=== PATIENT | male | born 1950 | race Caucasian/White ===

== ENCOUNTER → 2019-04-28 10:32 | Outpatient (BNVA) | payer OTHER, SELFPAY | PROVIDERS: PCP Internal Medicine; Visit Provider Otolaryngology | DX: J32.9 Chronic sinusitis, unspecified (principal); J34.2 Deviated nasal septum; J34.3 Hypertrophy of nasal turbinates; F17.210 Nicotine dependence, cigarettes, uncomplicated | CPT/HCPCS: 99203; 99214 ==

== ENCOUNTER 2019-05-03 13:11 | Outpatient (CLI) | payer OTHER, SELFPAY ==
--- NOTE | 2019-05-03 13:30 | CT_ITS ---
WS: [id number] CT PARANASAL SINUSES HISTORY: sinus problems TECHNIQUE: Contiguous 2.5 mm axial images obtained through the sinuses. Images are reconstructed in s agittal and coronal planes. All CT scans at [facility] use at least one of these dose opt imization techniques: automated exposure control; mA and/or kV adjustment per patient size (includes targeted exams where dose is matched to clinical indication); or iterative reconstruction. DLP: 701.74 mGy.cm COMPARISON: None available. Frontal sinuses: Very mild mucoperiosteal thickening with no air-fluid level. Sphenoid sinus: Mild mucoperiosteal thickening anteriorly towards the ethmoid air cells. No air-fluid levels. Ethmoid sinuses: Moderate diffuse mucoperiosteal thickening throughout the ethmoid air cells, LEFT gr eater than RIGHT. Maxillary sinus: Mild mucoperiosteal thickening. No air-fluid levels. Mucous retention cyst in the fl oor the LEFT maxillary sinus. Ostiomeatal unit: Increased soft tissue at the ostiomeatal units. Ostiomeatal units are partially obs tructed. There is slight deviation of the uncinate process on the LEFT towards the orbit. No significant deviation of the nasal septum. CT/CT sinus wo con* [id number] IMPRESSION: 1. Mild chronic pansinusitis. Most significant disease involving the ethmoid a ir cell, LEFT greater than RIGHT. 2. Bilateral ostiomeatal unit partial obstruction, LEFT greater than RIGHT.
== END 2019-05-03 13:12 | disposition home or self-care (01) ==
LOC: CT 13:12
PROVIDERS: PCP Internal Medicine; Visit Provider Otolaryngology
DX: J32.4 Chronic pansinusitis (principal); J34.89 Other specified disorders of nose and nasal sinuses
CPT/HCPCS: 70486

== ENCOUNTER → 2019-05-17 10:43 | Outpatient (BNVA) | payer OTHER, SELFPAY | PROVIDERS: PCP Internal Medicine; Visit Provider Otolaryngology | DX: J32.9 Chronic sinusitis, unspecified (principal); J34.2 Deviated nasal septum; J34.3 Hypertrophy of nasal turbinates; F17.210 Nicotine dependence, cigarettes, uncomplicated | CPT/HCPCS: 96372; 99214; J3301 ==

== ENCOUNTER 2020-07-25 04:51 | Inpatient (IN) | payer OTHER, MEDICARE, SELFPAY ==
[2020-07-25] VITALS (16 sets, daily range): BP systolic 102–154; BP diastolic 65–74; PULSE 68–117; RESP 16–23; TEMP 36.3–37.2; O2SAT 93–97; BMI 30.3
--- NOTE | 2020-07-25 05:12 | XRR_ITS ---
PROCEDURE INFORMATION: Exam: XR Chest Exam date and time: 07/25/2020 5:25 AM Age: 69 years old Clinical indication: Dyspnea and shortness of breath; Patient HX: SOB and dyspnea TECHNIQUE: Imaging protocol: XR of the chest. Views: 1 view. COMPARISON: No relevant prior studies available. FINDINGS: Lungs: There is a focal opacity at the left lung base. Pleural spaces: Unremarkable. No pleural effusion. No pneumothorax. Heart/Mediastinum: Unremarkable. No cardiomegaly. Bones/joints: Unremarkable. XR/XR chest 1V portable [id number] IMPRESSION: Focal opacity at the left lung base which could be secondary to atelectasis or pneumonia.
--- NOTE | 2020-07-25 05:12 | ECG_ITS ---
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 Measurements Intervals [place] Rate: 103 P: 39 [place]: 188 QRS: 59 QRSD: 98 T: 20 QT: 332 QTc: 435 Interpretive Statements SINUS TACHYCARDIA POSSIBLE INFERIOR MYOCARDIAL INFARCTION , PROBABLY OLD [30 ms Q WAVE IN II/aVF] ABNORMAL RHYTHM ECG No previous ECG available for comparison Electronically Signed On 07-25-2020 8:05:34 CDT by Missael Noble M.D. [id number]
--- NOTE | 2020-07-25 05:13 | W.ED.SOB ---
Documented by User: Carmine Alcantar MD 07/25/20 05:49 HPI - SOB/Dyspnea General: Chief Complaint: Shortness of Breath/Dyspnea Stated Complaint: difficulty breathing Time Seen by Provider: 07/25/20 04:52 Source: patient Mode of arrival: ambulatory Limitations: no limitations History of Present Illness: HPI Narrative: 69-year-old male has a long history of COPD states he had increased shortness of breath of last 2 days. States that he is driving home the other day and was feeling tired and states he drank a lot of coffee roll the windows down and smoked a lot of cigarettes to try to stay awake and states that he has had increasing dyspnea since then. He states he typically smokes 2 to 4 cigarettes a day but smoked quite a few that day. He states he just feels that he can get breaths out and has had increased wheezing. Denies any fever. Denies any chest pain. Denies any vomiting or diarrhea. Associated symptoms: Deny abdominal pain, chest pain, fever(s), nausea or vomiting Review of Systems Const: Denies: fever(s), chills, body aches or change in appetite Eyes: Denies: blurry vision or eye discomfort ENMT: Denies: throat pain or dental pain Card: Denies: chest pain Resp: Reports: dyspnea, non-productive cough and wheezing GI: Denies: abdominal pain, nausea, vomiting or diarrhea : Denies: dysuria Musc: Denies: neck pain or back pain Skin/Breast: Denies: rash Neuro: Denies: headache(s) Psych: Denies: depression Jamison/Lymph: Denies: easy bruising All/Imm: Denies: urticaria PFS ED PFSH: Medical History (Updated 07/25/20 @ 06:35 by Damon Rich MD) Deviated septum Nasal turbinate hypertrophy Family History Other Cancer Social History Smoking and tobacco status: current every day smoker cigarettes Packs smoked per day: 1 Years cigarettes smoked: 53 Quit status (tobacco): considering quitting Physical Exam Const: COMMON NORMALS: no acute distress, patient oriented x3 and healthy appearing HENMT: COMMON NORMALS: normocephalic and atraumatic HEAD & SCALP: normocephalic and atraumatic Eye: COMMON NORMALS: Equal, round and reactive pupils present and EOMs intact bilaterally PUPIL: Yes Equal, round and reactive pupils present Neck/C-Spine: COMMON NORMALS: full ROM and supple Chest: COMMONS NORMALS: normal inspection of the chest and normal palpation of entire chest wall Resp: COMMON NORMALS: normal respiratory effort, No retractions and No use of accessory muscles AUSCULTATION: wheezes Cardio: COMMON NORMALS: regular rhythm and No murmurs present (Cardio) RATE: tachycardic RHYTHM: regular rhythm GI: COMMON NORMALS: Normal to inspection, nondistended, normoactive bowel sounds present, Soft to palpation, non-tender and no masses PALPATION: Yes Soft to palpation Extremity: COMMON NORMALS: normal to inspection and full ROM Neuro: COMMON NORMALS: patient oriented x3, moves all extremities and no focal motor deficits Psych: COMMON NORMALS: mental status grossly normal, Normal thought process present and cooperative THOUGHT PROCESS: Normal thought process present Skin: COMMON NORMALS: no rashes or lesions noted and no wounds GENERAL SKIN EXAM: no rashes or lesions noted Course Vital Signs: Vital signs: Vital Signs Temperature 97.7 F 07/25/20 04:54 Pulse Rate 100 07/25/20 05:47 Respiratory Rate 17 07/25/20 05:47 Blood Pressure 102/65 07/25/20 04:54 Pulse Oximetry 95 07/25/20 05:57 MDM - SOB/Dyspnea Lab Data: Labs: Lab Results 07/25/20 07/25/20 07/25/20 Range/Units 05:20 05:20 05:20 WBC 21.2 H (4.0-10.0) 10^3/ uL RBC 4.31 (4.1-5.3) 10^6/u L Hgb 14.3 (11.7-16.6) g/dL Hct 42.0 (42.0-52.0) % MCV 97.4 H (80-94) fL MCH 33.2 (28.0-34.0) pg MCHC 34.0 (30.0-36.0) g/dL RDW 11.5 L (12.1-15.1) % Plt Count 227 (130-400) 10^3/c mm MPV 9.4 (7.4-10.4) fL Neut % (Auto) 80.4 % Lymph % (Auto) 9.7 % Mcdonald % (Auto) 8.5 % Eos % (Auto) 0.4 % Baso % (Auto) 0.5 % Neut # (Auto) 17.02 H (1.8-7.7) 10^3/u L Lymph # (Auto) 2.1 (0.8-4.8) 10^3/u L Mcdonald # (Auto) 1.8 H (0.2-0.9) 10^3/u L Eos # (Auto) 0.1 (0.0-0.8) 10^3/u L Baso # (Auto) 0.1 (0.0-0.1) 10^3/u L Nucleated RBC % (a uto) 0 % Nucleated RBCs # 0.0 /100WBC D-Dimer (0-0.59) ug/mIFE U Sodium 130 L (136-145) mmol/L Potassium 4.6 (3.5-5.1) mmol/L Chloride 97 L (98-107) mmol/L Carbon Dioxide 21 L (22-29) mmol/L Anion Gap 16.6 (5-19) BUN 22 (8-23) mg/dL Creatinine 1.3 H (0.7-1.2) mg/dL GFR Calculation 54.7 L (90-130) mL/min Glucose 139 H (65-115) mg/dL Calculated Osmolal ity 276 L (285-295) mOsm/k g Calcium 8.6 (8.5-10.5) mg/dL Total Bilirubin 1.0 (0.15-1.2) mg/dL AST 16 (0-40) U/L ALT 18 (0-41) U/L Alkaline Phosphata se 84 (40-130) IU/L Troponin T Baselin e 21 H (0-15) ng/L NT-Pro-B Natriuret Pep 119 (0-125) pg/mL Total Protein 7.1 (6.6-8.7) g/dL Albumin 4.2 (3.5-5.2) g/dL Globulin 2.9 (1.3-4.6) g/dL 07/25/20 Range/Units 05:55 WBC (4.0-10.0) 10^3/ uL RBC (4.1-5.3) 10^6/u L Hgb (11.7-16.6) g/dL Hct (42.0-52.0) % MCV (80-94) fL MCH (28.0-34.0) pg MCHC (30.0-36.0) g/dL RDW (12.1-15.1) % Plt Count (130-400) 10^3/c mm MPV (7.4-10.4) fL Neut % (Auto) % Lymph % (Auto) % Mcdonald % (Auto) % Eos % (Auto) % Baso % (Auto) % Neut # (Auto) (1.8-7.7) 10^3/u L Lymph # (Auto) (0.8-4.8) 10^3/u L Mcdonald # (Auto) (0.2-0.9) 10^3/u L Eos # (Auto) (0.0-0.8) 10^3/u L Baso # (Auto) (0.0-0.1) 10^3/u L Nucleated RBC % (a uto) % Nucleated RBCs # /100WBC D-Dimer 0.71 H (0-0.59) ug/mIFE U Sodium (136-145) mmol/L Potassium (3.5-5.1) mmol/L Chloride (98-107) mmol/L Carbon Dioxide (22-29) mmol/L Anion Gap (5-19) BUN (8-23) mg/dL Creatinine (0.7-1.2) mg/dL GFR Calculation (90-130) mL/min Glucose (65-115) mg/dL Calculated Osmolal ity (285-295) mOsm/k g Calcium (8.5-10.5) mg/dL Total Bilirubin (0.15-1.2) mg/dL AST (0-40) U/L ALT (0-41) U/L Alkaline Phosphata se (40-130) IU/L Troponin T Baselin e (0-15) ng/L NT-Pro-B Natriuret Pep (0-125) pg/mL Total Protein (6.6-8.7) g/dL Albumin (3.5-5.2) g/dL Globulin (1.3-4.6) g/dL EKG Data^: EKG 1: Attestation: I personally reviewed and interpreted this EKG as follows: EKG Interpretation Date: 07/25/20 EKG interpretation time: 05:45 Interpretation: sinus tach hr [address] or t wave abnormalities qrs 98 qtc 392 Discharge Plan Discharge Patient Disposition: Placed in Observation Clinical Impression: Community acquired pneumonia, Acute exacerbation of chronic obstructive airways disease, Acute respiratory failure with hypoxia and hypercapnia Condition: Stable Prescriptions: No Action spironolactone 25 mg tablet 25 mg PO DAILY RF: 0 lisinopril 40 mg tablet 40 mg PO DAILY RF: 0 fluticasone propionate [Allergy Relief (fluticasone)] 50 mcg/actuation spray,suspension 1 spray INTRANASAL DAILY RF: 0 aspirin [Adult Aspirin Regimen] 81 mg tablet,delayed release (DR/EC) 81 mg PO DAILY RF: 0 Complete Multivitamin Tablet 1 tab PO DAILY RF: 0 Referrals: Mike Manuel [Primary Care Provider] - Discharge Diet: Usual diet Discharge Activity: Increase activity as tolerated Coding Level of Care Code ED Family Reunification Specialist for Chg Fwd Exam Comprehensive Documented by User: Damon Rich MD 07/25/20 06:35 HPI - SOB/Dyspnea General: Chief Complaint: Shortness of Breath/Dyspnea Stated Complaint: difficulty breathing Time Seen by Provider: 07/25/20 04:52 PFS ED PFSH: Medical History (Updated 07/25/20 @ 06:35 by Damon Rich MD) Deviated septum Nasal turbinate hypertrophy Family History Other Cancer Social History Smoking and tobacco status: current every day smoker cigarettes Packs smoked per day: 1 Years cigarettes smoked: 53 Quit status (tobacco): considering quitting Course Vital Signs: Vital signs: Vital Signs Temperature 97.7 F 07/25/20 04:54 Pulse Rate 100 07/25/20 05:47 Respiratory Rate 17 07/25/20 05:47 Blood Pressure 102/65 07/25/20 04:54 Pulse Oximetry 95 07/25/20 05:57 MDM - SOB/Dyspnea MDM Narrative: Medical decision making narrative: 69-year-old male presents with chills, malaise, coughing. He has elevated white blood cell count, tachycardia, hypoxia down to 86% on room air at rest even after breathing treatment, leukocytosis, and infiltrate in the left lower lobe on chest x-ray. Patient has low sodium and chloride, low bicarb, and elevated creatinine. A D-dimer was ordered on his initial presentation overnight and has come back positive. It is only mildly positive when age-adjusted. Favor pneumonia over pulmonary embolism. I have started 20 cc/kg of lactated Ringer's, Rocephin, doxycycline, blood cultures, lactic acid for SIRS criteria and suspected pneumonia. A Covid screen will be performed as a precaution although this was low suspicion clinically. Patient will require admission to the hospital. Dr. HANCOCK was paged for admission. Lab Data: Attestation: I reviewed the patient's lab results. Labs: Lab Results 07/25/20 07/25/20 07/25/20 Range/Units 05:20 05:20 05:20 WBC 21.2 H (4.0-10.0) 10^3/ uL RBC 4.31 (4.1-5.3) 10^6/u L Hgb 14.3 (11.7-16.6) g/dL Hct 42.0 (42.0-52.0) % MCV 97.4 H (80-94) fL MCH 33.2 (28.0-34.0) pg MCHC 34.0 (30.0-36.0) g/dL RDW 11.5 L (12.1-15.1) % Plt Count 227 (130-400) 10^3/c mm MPV 9.4 (7.4-10.4) fL Neut % (Auto) 80.4 % Lymph % (Auto) 9.7 % Mcdonald % (Auto) 8.5 % Eos % (Auto) 0.4 % Baso % (Auto) 0.5 % Neut # (Auto) 17.02 H (1.8-7.7) 10^3/u L Lymph # (Auto) 2.1 (0.8-4.8) 10^3/u L Mcdonald # (Auto) 1.8 H (0.2-0.9) 10^3/u L Eos # (Auto) 0.1 (0.0-0.8) 10^3/u L Baso # (Auto) 0.1 (0.0-0.1) 10^3/u L Nucleated RBC % (a uto) 0 % Nucleated RBCs # 0.0 /100WBC D-Dimer (0-0.59) ug/mIFE U Sodium 130 L (136-145) mmol/L Potassium 4.6 (3.5-5.1) mmol/L Chloride 97 L (98-107) mmol/L Carbon Dioxide 21 L (22-29) mmol/L Anion Gap 16.6 (5-19) BUN 22 (8-23) mg/dL Creatinine 1.3 H (0.7-1.2) mg/dL GFR Calculation 54.7 L (90-130) mL/min Glucose 139 H (65-115) mg/dL Calculated Osmolal ity 276 L (285-295) mOsm/k g Calcium 8.6 (8.5-10.5) mg/dL Total Bilirubin 1.0 (0.15-1.2) mg/dL AST 16 (0-40) U/L ALT 18 (0-41) U/L Alkaline Phosphata se 84 (40-130) IU/L Troponin T Baselin e 21 H (0-15) ng/L NT-Pro-B Natriuret Pep 119 (0-125) pg/mL Total Protein 7.1 (6.6-8.7) g/dL Albumin 4.2 (3.5-5.2) g/dL Globulin 2.9 (1.3-4.6) g/dL 07/25/20 Range/Units 05:55 WBC (4.0-10.0) 10^3/ uL RBC (4.1-5.3) 10^6/u L Hgb (11.7-16.6) g/dL Hct (42.0-52.0) % MCV (80-94) fL MCH (28.0-34.0) pg MCHC (30.0-36.0) g/dL RDW (12.1-15.1) % Plt Count (130-400) 10^3/c mm MPV (7.4-10.4) fL Neut % (Auto) % Lymph % (Auto) % Mcdonald % (Auto) % Eos % (Auto) % Baso % (Auto) % Neut # (Auto) (1.8-7.7) 10^3/u L Lymph # (Auto) (0.8-4.8) 10^3/u L Mcdonald # (Auto) (0.2-0.9) 10^3/u L Eos # (Auto) (0.0-0.8) 10^3/u L Baso # (Auto) (0.0-0.1) 10^3/u L Nucleated RBC % (a uto) % Nucleated RBCs # /100WBC D-Dimer 0.71 H (0-0.59) ug/mIFE U Sodium (136-145) mmol/L Potassium (3.5-5.1) mmol/L Chloride (98-107) mmol/L Carbon Dioxide (22-29) mmol/L Anion Gap (5-19) BUN (8-23) mg/dL Creatinine (0.7-1.2) mg/dL GFR Calculation (90-130) mL/min Glucose (65-115) mg/dL Calculated Osmolal ity (285-295) mOsm/k g Calcium (8.5-10.5) mg/dL Total Bilirubin (0.15-1.2) mg/dL AST (0-40) U/L ALT (0-41) U/L Alkaline Phosphata se (40-130) IU/L Troponin T Baselin e (0-15) ng/L NT-Pro-B Natriuret Pep (0-125) pg/mL Total Protein (6.6-8.7) g/dL Albumin (3.5-5.2) g/dL Globulin (1.3-4.6) g/dL Imaging Data^: CXR: Attestation: I personally reviewed and interpreted this imaging study as follows: My impression: LLL infiltrate Discharge Plan Discharge Patient Disposition: Placed in Observation Clinical Impression: Community acquired pneumonia, Acute exacerbation of chronic obstructive airways disease, Acute respiratory failure with hypoxia and hypercapnia Condition: Stable Prescriptions: No Action spironolactone 25 mg tablet 25 mg PO DAILY RF: 0 lisinopril 40 mg tablet 40 mg PO DAILY RF: 0 fluticasone propionate [Allergy Relief (fluticasone)] 50 mcg/actuation spray,suspension 1 spray INTRANASAL DAILY RF: 0 aspirin [Adult Aspirin Regimen] 81 mg tablet,delayed release (DR/EC) 81 mg PO DAILY RF: 0 Complete Multivitamin Tablet 1 tab PO DAILY RF: 0 Referrals: Mike Manuel [Primary Care Provider] - Discharge Diet: Usual diet Discharge Activity: Increase activity as tolerated Coding Level of Care Code ED Family Reunification Specialist for Chg Fwd Exam Comprehensive
[2020-07-25 05:35] LABS: Basophils # 0.1 10^3/uL (0.0-0.1); Basophils % 0.5 %; Eosinophils # 0.1 10^3/uL (0.0-0.8); Eosinophils % 0.4 %; Hemoglobin 14.3 g/dL (11.7-16.6); Lymphocytes # 2.1 10^3/uL (0.8-4.8); Lymphocytes % 9.7 %; Mean Corpuscular Hemoglobin 33.2 pg (28.0-34.0); Mean Corpuscular Volume 97.4 fL (80-94); Mean Platelet Volume 9.4 fL (7.4-10.4); Monocytes # 1.8 10^3/uL (0.2-0.9); Monocytes % 8.5 %; Neutrophils # 17.02 10^3/uL (1.8-7.7); Neutrophils % 80.4 %; Nucleated Red Blood Cells % 0 %; Platelet Count 227 10^3/cmm (130-400); Red Blood Count 4.31 10^6/uL (4.1-5.3); Red Cell Distribution Width 11.5 % (12.1-15.1); White Blood Count 21.2 10^3/uL (4.0-10.0)
[2020-07-25] MEDS: ipratropium-albuterol 3 mL Neb INHALATION ×4 (05:46→20:33)
[2020-07-25 05:59] LABS: Troponin(5th) Baseline 21 ng/L (0-15)
[2020-07-25 06:09] LABS: Alanine Aminotransferase 18 U/L (0-41); Albumin Level 4.2 g/dL (3.5-5.2); Alkaline Phosphatase 84 IU/L (40-130); Anion Gap 16.6 (5-19); Aspartate Amino Transferase 16 U/L (0-40); Blood Urea Nitrogen 22 mg/dL (8-23); Calcium 8.6 mg/dL (8.5-10.5); Carbon Dioxide 21 mmol/L (22-29); Chloride 97 mmol/L (98-107); Globulin 2.9 g/dL (1.3-4.6); Glomerular Filtration Rate 54.7 mL/min (90-130); Glucose 139 mg/dL (65-115); NT Pro B Type Natriuretic Pept 119 pg/mL (0-125); Osmolality Calculated 276 mOsm/kg (285-295); Potassium 4.6 mmol/L (3.5-5.1); Sodium 130 mmol/L (136-145); Total Protein 7.1 g/dL (6.6-8.7)
[2020-07-25 06:12] LABS: D Dimer 0.71 ug/mIFEU (0-0.59)
[2020-07-25] MEDS: cefTRIAXone 1,000 MG in sodium chloride 0.9% (plus) 50 ML 100 MG IV (06:15)
--- NOTE | 2020-07-25 06:23 | CTR_ITS ---
PROCEDURE INFORMATION: Exam: CTA Chest With Contrast Exam date and time: 07/25/2020 6:25 AM Age: 69 years old Clinical indication: Chest pain; Additional info: Elevated dd, hypoxia TECHNIQUE: Imaging protocol: Computed tomographic angiography of the chest with contrast. 3D rendering (Not supervised by radiologist): MIP and/or 3D reconstructed images were created by the technologist. Radiation optimization: All CT scans at this facility use at least one of these dose optimization techniques: automated exposure control; mA and/or kV adjustment per patient size (includes targeted exams where dose is matched to clinical indication); or iterative reconstruction. Contrast material: VISI; Contrast volume: 140 ml; Contrast route: INTRAVENOUS (IV); COMPARISON: CR (CHEST, ) 07/25/2020 5:10 AM RADIATION DOSE METRICS: Total DLP (mGy-cm): 1128.55 FINDINGS: Pulmonary arteries: No pulmonary artery embolism identified. Aorta: Moderate aortic arch, branch, and descending thoracic aortic atherosclerotic calcification without ectasia. Thyroid: The partially imaged bilateral thyroid lobes are unremarkable. Lungs: A 14.2 mm noncalcified pulmonary nodule is noted in the medial apical segment of the right upper lobe (LOC -29.75). Patchy bilateral small pulmonary parenchymal mixed airspace and interlobular interstitial densities, some of which are rounded, and predominantly peripheral, most conspicuous in the left upper lobe, lingula and lateral left lung base. Pleural spaces: Unremarkable. No pneumothorax. No pleural effusion. Heart: Mitral annular calcification is present. Left main, LAD, LCx and RCA calcified coronary atherosclerosis. Mediastinal space: Right hilar granulomatous wendy calcifications are present. Lymph nodes: No enlarged lymph nodes. Liver: The liver demonstrates a few small granulomatous calcifications. Spleen: The spleen demonstrates several small calcifications consistent with healed granulomatous disease. A small medial splenule is present. Bones/joints: Mild degenerative disk disease is present at mid-thoracic spine disk levels. Soft tissues: Unremarkable. CT/CT angio chest PE protcl [id number] IMPRESSION: 1. No pulmonary artery embolism identified. 2. Noncalcified right upper lobe pulmonary nodule. Pulmonary neoplasia not excluded. Comparison with prior studies, if available, recommended. Three-month followup chest CT, PET/CT, or percutaneous needle biopsy recommended. (Osmani et al., Fleischner Society, 2017). 3. Patchy bilateral small pulmonary parenchymal mixed airspace and interlobular interstitial densities. Pneumonitis, including viral pneumonitis, is difficult to exclude. Clinical correlation is recommended. 4. Coronary atherosclerosis. Radiation Dose CTDIVOL = (mGy): DLP = 1128.55 (mGy-cm)
[2020-07-25] MEDS: iohexol 350 mg/mL 100 mL Btl IV (06:35)
[2020-07-25] MEDS: iodixanol 320 mg/mL 100mL Btl IV (06:38)
[2020-07-25 06:48] LABS: Lactic Sepsis W/Reflex 0.9 mmol/L (0.5-2.2)
[2020-07-25] MEDS: doxycycline 100 MG in sodium chloride 0.9% (plus) 100 ML IV (06:54)
--- NOTE | 2020-07-25 07:12 | ECG_ITS ---
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 Measurements Intervals [address] Rate: 95 P: 45 NE: 218 QRS: 18 QRSD: 95 T: 25 QT: 339 QTc: 427 Interpretive Statements SINUS RHYTHM WITH FIRST DEGREE AV BLOCK Compared to ECG 07/25/2020 05:45:55 First degree AV block now present Sinus tachycardia no longer present Myocardial infarct finding no longer present Electronically Signed On 07-25-2020 10:02:20 CDT by Missael Noble M.D. [id number]
[2020-07-25 07:29] LABS: SARS Covid-2 Antigen Negative (Negative)
[2020-07-25 07:44] LABS: Troponin 5 2HR 13.21 ng/L (0-15)
[2020-07-25 07:45] LABS: Troponin 5 2HR Delta -7.79 ABS# (0-10)
--- NOTE | 2020-07-25 08:09 | PC.NURSE ---
fluids and abx complete. Pt ambulates independently to bathroom. Pt now resting quietly in room. No needs identified at this time, will continue to monitor.
--- NOTE | 2020-07-25 08:22 | PC.PHAR ---
pt states he takes care of his own medications-trazodone 100mg take 50mg hs prn is [facility]-pt states he doesnt use that medication-pt state he took a couple times and doesnt like it-pt states he hasnt taken for a week or so-
[2020-07-25 08:39] LABS: ABG PCO2 34.9 mmHg (35-45); ABG PH Result 7.41 (7.35-7.45); Arterial Blood Gas Hematocrit 41.2 % (42-52); Base Excess ABG -2.1 mmol/L (-2.0-2.0); Blood Gas Allen Test Pos; Blood Gas Operator Identificat CAK; Blood Gas Sample Site Radial, left; Blood Gas Sample Type Arterial; Oxygen Device NC; PO2 ABG 68.5 mmHg (80.0-100.0)
--- NOTE | 2020-07-25 11:12 | ECG_ITS ---
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 Measurements Intervals [place] Rate: 89 P: 46 WI: 249 QRS: 50 QRSD: 97 T: 45 QT: 351 QTc: 428 Interpretive Statements SINUS RHYTHM WITH FIRST DEGREE AV BLOCK Compared to ECG 07/25/2020 08:29:50 No significant changes Electronically Signed On 07-29-2020 12:26:35 CDT by Karyn Bernstein M.D. [id number]
--- NOTE | 2020-07-25 11:12 | PM.HP ---
Providers/Chief Complaint Admitting Physician: Austin Espinoza MD Primary Care Provider: Mike Manuel Chief Complaint: difficulty breathing History of Present Illness Neal Masters is a 69 year old male with a past medical history of COPD, over [id number] history of smoking, hypertension, who presents to [facility] due to a 4 to 5-day history of cough, fevers, shortness of breath, wheezing. 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 No chest pain, no palpitations, no history of CAD. Denies any exposure to COVID-19 or influenza. No loss of taste, loss of smell. Review of Systems Const: Reports: fever(s); Denies: chills, fatigue or malaise Eyes: Denies: change in vision or blurry vision ENMT: Denies: nasal congestion Card: Denies: chest pain or palpitations Resp: Reports: dyspnea and productive cough; Denies: non-productive cough or wheezing GI: Denies: abdominal pain, nausea, vomiting, hematemesis, diarrhea, constipation, hematochezia or melena : Denies: flank pain, difficulty urinating, dysuria or urinary frequency Musc: Denies: neck pain or back pain Skin/Breast: Denies: rash Neuro: Denies: headache(s) or dizziness Medications/Allergies Home Medications Medication Instructions Recorded Confirmed Last Taken Type fluticasone propionate 50 1 - 2 spray INTRANASAL DAILY 04/28/19 07/25/20 Unknown History mcg/actuation nasal spray,suspension lisinopril 40 mg tablet 40 mg PO DAILY@04/28/19 07/25/20 07/24/20 History spironolactone 25 mg tablet 25 mg PO DAILY@04/28/19 07/25/20 07/24/20 History aspirin 81 mg tablet,delayed 81 mg PO .EVERY 3 TO 4 DAYS 05/17/19 07/25/20 07/23/20 History release albuterol sulfate 2.5 mg INHALATION PRN 07/25/20 07/25/20 Unknown History albuterol sulfate [ProAir HFA] 2 puff INHALATION Q4H PRN 07/25/20 07/25/20 07/24/20 History budesonide-formoterol [Symbicort] 2 puff INHALATION BID 07/25/20 07/25/20 07/24/20 History multivitamin 1 tab PO DAILY@08 07/25/20 07/25/20 Unknown History phenol-phenolate sodium [Sore 2 spray MUCOUS MEMBRANE PRN 07/25/20 07/25/20 Unknown History Throat] gwljwclogunpu-SD-fgbfqhrpdib 5 - 10 ml PO PRN 07/25/20 07/25/20 07/24/20 History [Tussin CF (PE-DM-guaif)] vit C,S-Ir-euvtl-lutein-zeaxan 1 tab PO BID 07/25/20 07/25/20 Unknown History [PreserVision AREDS-2] Allergies Allergy/AdvReac Type Severity Reaction Status Date / Time No Known Allergies Allergy Verified 07/25/20 08:21 PFSH Acute PFSH: Medical History (Updated 07/25/20 @ 11:19 by Austin Espinoza MD) Deviated septum HTN (hypertension) Nasal turbinate hypertrophy Surgical History (Updated 07/25/20 @ 11:15 by Austin Espinoza MD) H/O elbow surgery History of hernia surgery History of shoulder surgery Family History (Updated 07/25/20 @ 11:16 by Austin Espinoza MD) Mother Lung disease Other Cancer Social History Smoking and tobacco status: current every day smoker cigarettes Packs smoked per day: 1 Years cigarettes smoked: 53 Quit status (tobacco): considering quitting Vitals/I&O/Wt Last Vital Signs Temp 99 F 07/25/20 06:06 Pulse 90 07/25/20 06:54 Resp 16 07/25/20 06:54 BP 121/67 07/25/20 06:54 Pulse Ox 93 07/25/20 06:54 07/24/20 07/25/20 07/25/20 22:59 06:59 14:59 Intake Total 2236.52 / 2236.52 Balance 2236.52 / 2236.52 Weight last 48 hrs Weight 104.326 kg Physical Exam Const: COMMON NORMALS: no acute distress and patient oriented x3 GENERAL APPEARANCE: cooperative and comfortable HENMT: COMMON NORMALS: normocephalic HEAD & SCALP: normocephalic Eye: COMMON NORMALS: Equal, round and reactive pupils present and EOMs intact bilaterally GENERAL EYE: appearance normal, both eyes and all related structures PUPIL: Yes Equal, round and reactive pupils present Neck/C-Spine: COMMON NORMALS: full ROM and no lymphadenopathy THYROID: Thyroid normal Lymph: LYMPHATIC: no lymphadenopathy noted Resp: COMMON NORMALS: normal respiratory effort, No retractions and No use of accessory muscles EFFORT & INSPECTION: Yes audible wheezes AUSCULTATION: wheezes Cardio: COMMON NORMALS: no JVD, regular rate, regular rhythm, S1 normal heart sound present, S2 normal heart sound present, No gallops present (Cardio), No clicks present (Cardio) and No murmurs present (Cardio) RATE: regular rate RHYTHM: regular rhythm HEART SOUNDS: S1 normal heart sound present and S2 normal heart sound present GI: COMMON NORMALS: Normal to inspection, nondistended, normoactive bowel sounds present, Soft to palpation, non-tender and No hepatosplenomegaly present PALPATION: Yes Soft to palpation and Yes No hepatosplenomegaly present Extremity: COMMON NORMALS: normal to inspection, full ROM and no pedal edema Neuro: COMMON NORMALS: patient oriented x3, CN's II-XII intact bilaterally, moves all extremities and no focal motor deficits Psych: COMMON NORMALS: mental status grossly normal, Normal thought process present and cooperative THOUGHT PROCESS: Normal thought process present Data : 07/25/20 05:20 07/25/20 05:20 Micro: Microbiology 07/25/20 06:29 Blood Culture - Preliminary Blood SPECIMEN COLLECTED 07/25/20 06:29 Blood Culture - Preliminary Blood SPECIMEN COLLECTED A&P Assessment and plan (1) Acute respiratory failure with hypoxia and hypercapnia: -Secondary to COPD exacerbation, pneumonia -WBC 21.2 neutrophilic -PO2 on 2 L was 68.5 -CT angiogram of the chest showed Patchy bilateral small pulmonary parenchymal mixed airspace and interlobular interstitial densities. -Rapid Covid negative Plan: -Admit to general medical floors -Covid precautions -Covid PCR ordered, rapid flu ordered, pro-Roddy ordered -He has received broad-spectrum antibiotic therapies and steroid therapy in the ER -Start Solu-Medrol 40 every 8 hours -Start Rocephin, azithromycin -Follow blood cultures, sputum cultures, urine bacterial antigen -De-escalate oxygen as tolerated -Monitor respiratory status -Full code -Lovenox for DVT prophylaxis Status: Acute (2) Community acquired pneumonia: Status: Acute Qualifiers: Laterality: left Lung location: lower lobe of lung Qualified Code(s): J18.9 - Pneumonia, unspecified organism (3) Acute exacerbation of chronic obstructive airways disease: Status: Acute (4) Lung nodule: -Has a noncalcified right upper lobe nodule -Given over [id number] history smoking we will have patient follow-up with pulmonary service Status: Acute (5) Acute kidney injury: -Creatinine 1.3, does not look clinically dehydrated, monitor for now Status: Acute (6) Hyponatremia: Serum sodium 130, likely insensible water losses continue to monitor Status: Acute (7) Elevated blood sugar: Will order hemoglobin A1c Status: Acute Attestations Medical Necessity Statement*: Patient requires hospitalization, outpatient with observation, for acute respiratory failure with hypoxia secondary to pneumonia, COPD exacerbation Coding Level of Care Code 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
[2020-07-25 12:54] LABS: Troponin 5 6HR 10.03 ng/L (0-15)
[2020-07-25 12:58] LABS: Troponin 5 6HR Delta -10.97 ng/L (0-12)
[2020-07-25 13:53] LABS: Procalcitonin 0.18 ng/mL (0-0.5)
[2020-07-25] MEDS: enoxaparin 40 mg/0.4 mL Syringe SUBCUT (14:00)
[2020-07-25 14:57] LABS: Estmated Average Glucose 114; Hemoglobin A1C 5.6 % (4.0-6.0)
[2020-07-25 15:49] LABS: Influenza A by IFA Negative (Negative); Influenza B by IFA Negative (Negative)
[2020-07-25] MEDS: nicotine 14 mg Patch 1 PATCH TRANSDERMA (16:13)
--- NOTE | 2020-07-25 21:08 | PC.NURSE ---
Patient refused SCD bilaterally. Patient states he is up and down and walking in his room and he is planning on being discharged tomorrow so he does not feel he needs them. This nurse educated patient on the importance of the SCDs. Patient thanked this nurse but still declined wanting the SCDs.
[2020-07-26] VITALS (18 sets, daily range): BP systolic 132–161; BP diastolic 71–82; PULSE 74–93; RESP 17–23; TEMP 36–37.1; O2SAT 93–98
[2020-07-26] MEDS: ipratropium-albuterol 3 mL Neb INHALATION ×2 (04:11→20:06)
[2020-07-26] MEDS: cefTRIAXone 1,000 MG in sodium chloride 0.9% (plus) 50 ML 100 MG IV (05:53)
[2020-07-26 06:08] LABS: Basophils # 0.1 10^3/uL (0.0-0.1); Basophils % 0.2 %; Hematocrit 37.8 % (42.0-52.0); Hemoglobin 12.9 g/dL (11.7-16.6); Lymphocytes # 1.4 10^3/uL (0.8-4.8); Lymphocytes % 6.3 %; Mean Corpuscular HGB Conc 34.1 g/dL (30.0-36.0); Mean Corpuscular Hemoglobin 33.1 pg (28.0-34.0); Mean Corpuscular Volume 96.9 fL (80-94); Mean Platelet Volume 9.8 fL (7.4-10.4); Monocytes # 1.3 10^3/uL (0.2-0.9); Monocytes % 5.8 %; Neutrophils # 18.61 10^3/uL (1.8-7.7); Neutrophils % 86.4 %; Nucleated Red Blood Cells % 0 %; Platelet Count 235 10^3/cmm (130-400); Red Cell Distribution Width 11.3 % (12.1-15.1); White Blood Count 21.5 10^3/uL (4.0-10.0)
[2020-07-26 06:32] LABS: Alanine Aminotransferase 22 U/L (0-41); Albumin Level 3.7 g/dL (3.5-5.2); Alkaline Phosphatase 76 IU/L (40-130); Anion Gap 14.2 (5-19); Aspartate Amino Transferase 20 U/L (0-40); Blood Urea Nitrogen 25 mg/dL (8-23); Calcium 8.7 mg/dL (8.5-10.5); Carbon Dioxide 21 mmol/L (22-29); Chloride 102 mmol/L (98-107); Creatinine Clr Calc Pharmacy 110.5312; Globulin 3.4 g/dL (1.3-4.6); Glomerular Filtration Rate 111.8 mL/min (90-130); Glucose 148 mg/dL (65-115); Magnesium 2.4 mg/dL (1.7-2.3); Osmolality Calculated 283 mOsm/kg (285-295); Phosphorus 3.7 mg/dL (2.5-4.5); Potassium 4.2 mmol/L (3.5-5.1); Sodium 133 mmol/L (136-145); Total Bilirubin 0.3 mg/dL (0.15-1.2); Total Protein 7.1 g/dL (6.6-8.7)
[2020-07-26] MEDS: multivitamin therapeutic Tablet 1 TAB PO (09:12)
[2020-07-26] MEDS: azithromycin 500 MG in sodium chloride 0.9% 250 ML 250 MG IV (09:12)
[2020-07-26] MEDS: pantoprazole DR 40 mg Tablet PO (09:12)
[2020-07-26] MEDS: aspirin 81 mg EC Tablet PO (09:12)
[2020-07-26] MEDS: nicotine 14 mg Patch 1 PATCH TRANSDERMA (09:12)
[2020-07-26] MEDS: fluticasone nasal spray 16gm Btl INTRANASAL (09:13)
[2020-07-26] MEDS: guaiFENesin 600 mg Tablet PO ×2 (12:11→17:34)
[2020-07-26] MEDS: enoxaparin 40 mg/0.4 mL Syringe SUBCUT (12:12)
--- NOTE | 2020-07-26 12:21 | PC.CHAP ---
Pastoral Care Encounter/Spiritual Assessment Type of Contact [] Declined secretary of state visit [] Patient/Family/Request visit [] Outpatient visit [] Follow-up visit [] Physician referral [] Code/Alert [] Routine visit [] Staff referral [] Actively dying [] Patient sleeping [] Family support [] [] Out of room [] Palliative care [] [] Receiving care in room [] Pre-surgical visit [] Trauma [] Long length of stay [] ICU visit [x] Other: Isolation in room Relational/Emotional Strength [] Patient feels connected with others/family/visitors/staff [] Distress [] Loneliness/isolation [] Abandonment Spirituality of Patient [] Person of Isela [] Attends Temple of their Isela [] Believes in Prayer [] Reads Bible or Oriental Orthodox materials [] There are Spiritual issues to be addressed Fingerprint Technician Interventions [] Prayer [] Active listening [] Non-anxious presence [] Spiritual/emotional support [] Crisis/trauma care [] Spiritual counseling [] Bereavement support [] Provided bereavement packet [] Provided Bible/devotional materials [] Provided toy/stuffed animal, coloring book to patient or family member [] Provided Communion [] Anointing/[place] [] Salvation [] Completed spiritual assessment [] Other: Impact on Illness or Injury [] Angry [] Fearful [] Anxious [] Often cries [] Exhaustion [] Unable to work [] Unable to attend congregational [] Unable to walk/stand [] Unable to read [] Unable to drive [] Unable to eat/drink [] Unable to sleep [] Unable to be with family [] Patient intubated [] Other: Summary Isolation in room Time spent with patient 5 mins
--- NOTE | 2020-07-26 12:23 | P.PN_ITS ---
Subjective Subjective: Interval history: Patient tells me that his breathing has improved, wheezing has improved, still having a productive cough, overall doing better, down to 2 L Vitals/I&O/Wt Last Vital Signs Temp 96.8 F L 07/26/20 11:57 Pulse 86 07/26/20 11:57 Resp 17 07/26/20 11:57 BP 155/77 07/26/20 11:57 Pulse Ox 95 07/26/20 11:57 07/25/20 07/26/20 07/26/20 22:59 06:59 14:59 Intake Total 360 / 2596.52 50 / 2646.52 490 / 490 Balance 360 / 2596.52 50 / 2646.52 490 / 490 Weight last 48 hrs Weight 104.326 kg Physical Exam Const: COMMON NORMALS: no acute distress and patient oriented x3 HENMT: COMMON NORMALS: normocephalic HEAD & SCALP: normocephalic Neck/C-Spine: COMMON NORMALS: no JVD Resp: COMMON NORMALS: normal respiratory effort, No retractions and No use of accessory muscles OTHER: end expiratory wheezing Cardio: COMMON NORMALS: no JVD, regular rate, regular rhythm, S1 normal heart sound present and S2 normal heart sound present RATE: regular rate RHYTHM: regular rhythm HEART SOUNDS: S1 normal heart sound present and S2 normal heart sound present GI: COMMON NORMALS: Normal to inspection, nondistended, normoactive bowel sounds present, Soft to palpation, non-tender, No hepatosplenomegaly present, no masses and no bruits PALPATION: Yes Soft to palpation and Yes No hepatosplenomegaly present Extremity: COMMON NORMALS: capillary refill normal, no clubbing, cyanosis or edema, no calf tenderness and no pedal edema Neuro: COMMON NORMALS: patient oriented x3 Psych: COMMON NORMALS: mental status grossly normal Data : 07/26/20 05:31 07/26/20 05:31 Micro: Microbiology 07/25/20 14:50 MRSA Culture - Final Nose 07/25/20 15:50 Gram Stain - Final Sputum - Expectorated Sputum Sputum Culture - Preliminary 07/25/20 17:50 Bacterial Antigens - Final Urine,Clean Catch 07/25/20 06:29 Blood Culture - Preliminary Blood NEGATIVE TO DATE 07/25/20 06:29 Blood Culture - Preliminary Blood NEGATIVE TO DATE A&P Assessment and plan (1) Acute respiratory failure with hypoxia and hypercapnia: -Secondary to COPD exacerbation, pneumonia -WBC 21.5 neutrophilic -PO2 on 2 L was 68.5 -CT angiogram of the chest showed Patchy bilateral small pulmonary parenchymal mixed airspace and interlobular interstitial densities. -Rapid Covid negative Plan: -Admit to general medical floors -Covid precautions -Covid PCR ordered, rapid flu negative -Continue Solu-Medrol 40 every 8 hours -Continue Rocephin, azithromycin -Follow blood cultures, sputum cultures, urine bacterial antigen -De-escalate oxygen as tolerated -Monitor respiratory status -Full code -Lovenox for DVT prophylaxis Status: Acute (2) Community acquired pneumonia: Status: Acute Qualifiers: Laterality: left Lung location: lower lobe of lung Qualified Code(s): J18.9 - Pneumonia, unspecified organism (3) Acute exacerbation of chronic obstructive airways disease: Status: Acute (4) Lung nodule: -Has a noncalcified right upper lobe nodule -Given over [id number] history smoking we will have patient follow-up with pulmonary service Status: Acute (5) Acute kidney injury: -Creatinine 1.3, does not look clinically dehydrated, monitor for now Status: Acute (6) Hyponatremia: Serum sodium 130, likely insensible water losses continue to monitor Status: Acute (7) Elevated blood sugar: Will order hemoglobin A1c Status: Acute Additional A&P Information Plan for today, continue antibiotic therapy, continue steroids, encourage ambulation, Mucinex Attestations Medical Necessity Statement*: Patient requires hospitalization for acute respiratory failure with hypoxia hypercapnia secondary to COPD and pneumonia Coding Level of Care Code Acute 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
[2020-07-26] MEDS: albuterol 8 gm MDI 2 PUFF INHALATION (14:03)
[2020-07-26 15:10] LABS: Coronavirus Test Green County Not Detected
[2020-07-26] MEDS: hyDROXYzine 25 mg Capsule PO (21:50)
[2020-07-27] VITALS (12 sets, daily range): BP systolic 137–171; BP diastolic 66–84; PULSE 72–88; RESP 16–20; TEMP 36.3–36.7; O2SAT 94–98
[2020-07-27] MEDS: ipratropium-albuterol 3 mL Neb INHALATION ×3 (00:36→08:00)
[2020-07-27] MEDS: cefTRIAXone 1,000 MG in sodium chloride 0.9% (plus) 50 ML 100 MG IV (06:22)
[2020-07-27 06:36] LABS: Basophils # 0.1 10^3/uL (0.0-0.1); Basophils % 0.3 %; Hematocrit 37.5 % (42.0-52.0); Hemoglobin 12.4 g/dL (11.7-16.6); Mean Corpuscular HGB Conc 33.1 g/dL (30.0-36.0); Mean Corpuscular Hemoglobin 32.6 pg (28.0-34.0); Mean Corpuscular Volume 98.7 fL (80-94); Mean Platelet Volume 10.1 fL (7.4-10.4); Monocytes # 0.6 10^3/uL (0.2-0.9); Monocytes % 3.1 %; Neutrophils # 18.12 10^3/uL (1.8-7.7); Neutrophils % 90.6 %; Nucleated Red Blood Cells % 0 %; Platelet Count 250 10^3/cmm (130-400); Red Cell Distribution Width 11.6 % (12.1-15.1)
[2020-07-27 06:54] LABS: Alanine Aminotransferase 38 U/L (0-41); Albumin Level 3.6 g/dL (3.5-5.2); Alkaline Phosphatase 165 IU/L (40-130); Anion Gap 15.7 (5-19); Aspartate Amino Transferase 23 U/L (0-40); Blood Urea Nitrogen 22 mg/dL (8-23); Calcium 8.8 mg/dL (8.5-10.5); Carbon Dioxide 23 mmol/L (22-29); Chloride 102 mmol/L (98-107); Creatinine Clr Calc Pharmacy 110.5312; Glomerular Filtration Rate 95.8 mL/min (90-130); Glucose 168 mg/dL (65-115); Magnesium 2.4 mg/dL (1.7-2.3); Osmolality Calculated 289 mOsm/kg (285-295); Phosphorus 3.4 mg/dL (2.5-4.5); Potassium 4.7 mmol/L (3.5-5.1); Sodium 136 mmol/L (136-145); Total Bilirubin 0.2 mg/dL (0.15-1.2); Total Protein 6.6 g/dL (6.6-8.7)
[2020-07-27] MEDS: azithromycin 500 MG in sodium chloride 0.9% 250 ML 250 MG IV (07:20)
[2020-07-27] MEDS: guaiFENesin 600 mg Tablet PO (09:21)
[2020-07-27] MEDS: aspirin 81 mg EC Tablet PO (09:21)
[2020-07-27] MEDS: fluticasone nasal spray 16gm Btl INTRANASAL (09:21)
[2020-07-27] MEDS: multivitamin therapeutic Tablet 1 TAB PO (09:21)
[2020-07-27] MEDS: pantoprazole DR 40 mg Tablet PO (09:21)
[2020-07-27] MEDS: nicotine 14 mg Patch 1 PATCH TRANSDERMA (09:21)
--- NOTE | 2020-07-27 10:10 | P.DS_ITS ---
Discharge Providers Date of Admission: 07/26/20 13:05 Date of Discharge: July 27, 2020 Attending Provider at Admission: Austin Espinoza MD Attending Provider at Discharge: Austin Espinoza MD Primary Care Provider: Mike Manuel Diagnoses at Discharge Discharge Diagnosis (1) Acute respiratory failure with hypoxia and hypercapnia: Status: Acute (2) Community acquired pneumonia: Status: Acute Qualifiers: Laterality: left Lung location: lower lobe of lung Qualified Code(s): J18.9 - Pneumonia, unspecified organism (3) Acute exacerbation of chronic obstructive airways disease: Status: Acute (4) Lung nodule: Status: Acute (5) Acute kidney injury: Status: Acute (6) Hyponatremia: Status: Acute (7) Elevated blood sugar: Status: Acute Reason for Visit Reason for Visit: difficulty breathing Hospital Course Hospital Course This is a 69-year-old male with a past medical history of COPD, not oxygen dependent, greater than [id number]-[id number] history of smoking, hypertension, who presents to [facility] due to complaints of shortness of breath Patient was admitted to [facility] for acute respiratory failure with hypoxia secondary to community-acquired pneumonia, COPD exacerbation, was admitted to the general medical floors, received broad-spectrum antibiotic therapy, steroid therapy, oxygen therapy and clinically monitored. Patient's rapid Covid and Covid PCR were negative. Cultures so far remain unremarkable. Patient clinically improved. Discharged on home O2, steroid taper, Levaquin for antibiotic coverage, with close follow-up with his primary care provider Patient was also found to have a pulmonary nodule, patient will follow up with pulmonary service for follow-up and evaluation. Physical Exam Const: COMMON NORMALS: no acute distress and patient oriented x3 HENMT: COMMON NORMALS: normocephalic HEAD & SCALP: normocephalic Neck/C-Spine: COMMON NORMALS: no JVD Resp: COMMON NORMALS: normal respiratory effort, No retractions, No use of accessory muscles and clear to auscultation bilaterally AUSCULTATION: clear to auscultation bilaterally Cardio: COMMON NORMALS: no JVD, regular rate, regular rhythm, S1 normal heart sound present and S2 normal heart sound present RATE: regular rate RHYTHM: regular rhythm HEART SOUNDS: S1 normal heart sound present and S2 normal heart sound present GI: COMMON NORMALS: Normal to inspection, nondistended, normoactive bowel sounds present, Soft to palpation, non-tender, No hepatosplenomegaly present, no masses and no bruits PALPATION: Yes Soft to palpation and Yes No hepatosplenomegaly present Extremity: COMMON NORMALS: no calf tenderness and no pedal edema Neuro: COMMON NORMALS: patient oriented x3 Psych: COMMON NORMALS: mental status grossly normal Discharge Data Data Completed and Pending: Completed Studies During Hospitalization Category Date Time Status CT angio chest PE protcl 75146 Urge nt Cat Scan 07/25/20 06:23 Completed XR chest 1V carito ble 21881 Urgent Exams 07/25/20 05:12 Completed Pending at discharge Category Date Time Status Blood Culture Sta t Lab 07/25/20 06:29 Results Complete Blood Co unt w/Auto AM LABS Lab 07/28/20 04:00 Ordered Comprehensive Met abolic Panel AM LA BS Lab 07/28/20 04:00 Ordered Magnesium AM LABS Lab 07/28/20 04:00 Ordered Phosphorus AM LAB S Lab 07/28/20 04:00 Ordered Sputum Culture an d Gram Stain Stat Lab 07/25/20 15:50 Results Labs from last 24 hours 07/27/20 07/27/20 07/25/20 05:59 05:59 14:50 WBC 20.0 H RBC 3.80 L Hgb 12.4 Hct 37.5 L MCV 98.7 H MCH 32.6 MCHC 33.1 RDW 11.6 L Plt Count 250 MPV 10.1 Neut % (Auto) 90.6 Lymph % (Auto) 5.0 Perry % (Auto) 3.1 Eos % (Auto) 0.0 Baso % (Auto) 0.3 Neut # (Auto) 18.12 H Lymph # (Auto) 1.0 [place] # (Auto) 0.6 Eos # (Auto) 0.0 Baso # (Auto) 0.1 Nucleated RBC % (a uto) 0 Nucleated RBCs # 0.0 Sodium 136 Potassium 4.7 Chloride 102 Carbon Dioxide 23 Anion Gap 15.7 BUN 22 Creatinine 0.8 GFR Calculation 95.8 Glucose 168 H Calculated Osmolal ity 289 Calcium 8.8 Phosphorus 3.4 Magnesium 2.4 H Total Bilirubin 0.2 AST 23 ALT 38 Alkaline Phosphata se 165 H Total Protein 6.6 Albumin 3.6 Globulin 3.0 Nasal/Oral COVID-1 9 PCR Not detected Vitals: Last Vital Signs Temp 97.4 F L 07/27/20 08:00 Pulse 77 07/27/20 08:06 Resp 18 07/27/20 08:00 BP 158/66 07/27/20 08:00 Pulse Ox 95 07/27/20 08:00 Discharge Plan Discharge Patient Disposition: Home Condition: Stable Prescriptions: New levofloxacin 750 mg tablet 750 mg PO DAILY 5 Days Qty: 5 RF: 0 prednisone 10 mg tablet See Rx Instructions .ROUTE .COMPLEX Qty: 53 RF: 0 Spiriva Respimat 2.5 mcg/actuation mist 2 inh inhalation Q24H Qty: 4 RF: 0 Continued spironolactone 25 mg tablet 25 mg PO DAILY@08 RF: 0 lisinopril 40 mg tablet 40 mg PO DAILY@08 RF: 0 fluticasone propionate [Flonase Allergy Relief] 50 mcg/actuation spray,suspension 1 - 2 spray INTRANASAL DAILY RF: 0 aspirin [Adult Aspirin Regimen] 81 mg tablet,delayed release (DR/EC) 81 mg PO .EVERY 3 TO 4 DAYS RF: 0 multivitamin Tablet 1 tab PO DAILY@08 RF: 0 albuterol sulfate 2.5 mg /3 mL (0.083 %) Solution For Nebulization 2.5 mg inhalation PRN RF: 0 Sore Throat Aerosol,[place] 2 spray mucous membrane PRN RF: 0 Tussin CF (PE-DM-guaif) 5-10-100 mg/5 mL Liquid 5 - 10 ml PO PRN RF: 0 ProAir HFA 90 mcg/actuation Hfa Aerosol Inhaler 2 puff INHALATION Q4H PRN (Reason: Shortness Of Breath) RF: 0 Symbicort 160-4.5 mcg/actuation Hfa Aerosol Inhaler 2 puff INHALATION BID RF: 0 PreserVision AREDS-2 250-90-40-1 mg Capsule 1 tab PO BID RF: 0 Discharge Orders: Discharge Order (Routine); Ordered 07/27/20 Ordered By: Austin Espinoza Referrals: Mike Manuel [Primary Care Provider] - Johnnie Chiang MD [Physician] - 1 month (LUNG NODULE, COPD) Discharge Diet: Usual diet Discharge Activity: Increase activity as tolerated Patient Instructions: Opioid Safety Activity Restrictions/Additional Instructions: -Please stop smoking -Please take steroid taper as prescribed -Please take antibiotics as prescribed -Please take Spiriva, Symbicort as prescribed -Follow-up with your primary care provider in 1 week -Follow-up with your lung doctor in 1 month for lung nodule and COPD Discharge Attestations Time Spent in Discharge Care*: less than 30 min Quality Metrics Clinical Quality Measures During this hospital stay, did patient experience: None Coding Level of Care Code Acute Chg FW DC note Diagnoses Acute respiratory failure with hypoxia and hypercapnia J96.01; J96.02 Community acquired pneumonia J18.9 Laterality: left Lung location: lower lobe of lung Acute exacerbation of chronic obstructive airways disease J44.1 Lung nodule R91.1 Acute kidney injury N17.9 Hyponatremia E87.1 Elevated blood sugar R73.9
--- NOTE | 2020-07-27 11:18 | PC.RESP ---
SMOKING CESSATION INFORMATION SENT TO PATIENT.
--- NOTE | 2020-07-27 12:07 | PC.RESP ---
SMOKING CESSATION INFORMATION SENT TO PATIENT.
== END 2020-07-27 11:55 | disposition home or self-care (01) | DRG 193 ==
LOC: ER 06:35 → MEDSURG 10:14
PROVIDERS: Emergency Medicine; Admitting Provider Family Medicine; Emergency Provider Emergency Medicine; PCP Internal Medicine; Visit Provider Family Medicine
DX: J18.9 Pneumonia, unspecified organism (principal); J96.02 Acute respiratory failure with hypercapnia; J96.01 Acute respiratory failure with hypoxia; J44.0 Chronic obstructive pulmonary disease with (acute) lower respiratory infection; J44.1 Chronic obstructive pulmonary disease with (acute) exacerbation; N17.9 Acute kidney failure, unspecified; E87.1 Hypo-osmolality and hyponatremia; F17.210 Nicotine dependence, cigarettes, uncomplicated; I10 Essential (primary) hypertension; J34.2 Deviated nasal septum; R91.8 Other nonspecific abnormal finding of lung field; R73.9 Hyperglycemia, unspecified; Z79.82 Long term (current) use of aspirin; Z79.51 Long term (current) use of inhaled steroids
CPT/HCPCS: 36415; 36600; 71045; 71275; 80053; 82803; 83036; 83605; 83735; 83880; 84100; 84145; 84443; 84484; 85025; 85378; 86403; 87040; 87070; 87205; 87426; 87635; 87641; 87804; 93005; 94640; 94664; 96365; 96367; 96372; 96375; 99285; G0378; J0456; J0696; J1650; J2920; J2930; J3490; J3535; J7050; J7611; Q9967

== ENCOUNTER 2021-06-16 11:16 | Emergency (ER) | payer OTHER, MEDICARE, SELFPAY ==
[2021-06-16 11:27] VITALS: BP 164/111; PULSE 107; RESP 20; TEMP 36.9; O2SAT 96; BMI 32.1
--- NOTE | 2021-06-16 11:31 | XRR_ITS ---
PROCEDURE INFORMATION: Exam: XR Chest Exam date and time: 06/16/2021 11:47 AM Age: 70 years old Clinical indication: Dyspnea TECHNIQUE: Imaging protocol: XR of the chest. Views: 2 views. COMPARISON: CR (CHEST, ) 07/25/2020 5:10 AM FINDINGS: Lungs: Subsegmental atelectasis or scarring at the left base. Pleural spaces: No pleural effusion. No pneumothorax. Heart/Mediastinum: The cardiac silhouette is unchanged. No gross evidence of pneumomediastinum. Diaphragm: There is flattening of the right hemidiaphragm. There is elevation of the left hemidiaphragm. Bones/joints: No gross fracture. XR/XR chest 2V* [id number] IMPRESSION: There is flattening of the right hemidiaphragm. There is elevation of the left hemidiaphragm.
--- NOTE | 2021-06-16 11:44 | ECG_ITS ---
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 Measurements Intervals [place] Rate: 96 P: 48 SD: 182 QRS: 7 QRSD: 102 T: 52 QT: 341 QTc: 433 Interpretive Statements SINUS RHYTHM INFERIOR MYOCARDIAL INFARCTION , OF INDETERMINATE AGE [40+ ms Q WAVE AND/OR ST/T ABNORMALITY IN II/aVF] Compared to ECG 07/25/2020 13:37:52 Myocardial infarct finding now present First degree AV block no longer present Electronically Signed On 06-17-2021 9:01:08 CDT by Missael Noble M.D. [email or web address]
--- NOTE | 2021-06-16 11:54 | W.ED.GENADLT ---
HPI - General Adult General: Chief complaint: Shortness of Breath/Dyspnea Stated complaint: Lungs feel tingly and burning Time Seen by Provider: 06/16/21 11:31 History of Present Illness: Patient is a 70-year-old male with history of COPD smoking who presents the emergency room with complaints of worsening left-sided chest burning and nasal congestion for the last month. Patient tells me about a year ago he has had similar symptoms diagnosed with walking pneumonia was treated with antibiotics. Patient thinks that his symptom is very similar to last year symptom and wanted to come in to the emergency room for checkup. Patient denies any fever or chills, has intermittent mild productive sputum. Patient denies any exertional chest pain or shortness of breath, pleuritic chest pain, nausea/vomiting, stabbing chest pain radiating towards back, abdominal complaints, melena hematochezia or urinary complaints. No prior history of VTE's. Patient does not have any prior cardiac issues. Patient reported using inhaler just prior to arriving in the ER. Onset:1 month ago Duration:1 month Location:L chest and throat Severity: mild/moderate Associated symptoms: Reports chest pain (+L sided chest burning); Deny dyspnea, nausea, rash, palpitations or vomiting Review of Systems Const: Denies: fever(s) or chills Eyes: Denies: change in vision ENMT: Reports: other (+nasal congestion); Denies: mouth pain Card: Reports: chest pain (+L sided chest burning); Denies: palpitations Resp: Reports: productive cough ( +mild productive cough); Denies: dyspnea or non-productive cough GI: Denies: abdominal pain, nausea, vomiting or diarrhea : Denies: dysuria Musc: Denies: extremity pain Skin/Breast: Denies: rash or new lesions Neuro: Denies: weakness in extremities Psych: Reports: other (Normal mood) Jam[place]/Lymph: Denies: easy bruising PFSH ED PFSH: Medical History Deviated septum HTN (hypertension) Nasal turbinate hypertrophy Surgical History H/O elbow surgery History of hernia surgery History of shoulder surgery Family History Mother Lung disease Other Cancer Social History Smoking and tobacco status: current every day smoker cigarettes Packs smoked per day: 1 Years cigarettes smoked: 53 Quit status (tobacco): considering quitting Second hand smoke exposure: Yes Smoking risk assessment/counseling performed?: Yes Alcohol intake: current Alcohol intake frequency: 0-2 Drinks per Day Alcohol type: beer Counseling given: Yes Counseling given: No Lives independently: Yes Household members: none Marital status: service: Yes Current occupational status: retired History of recent travel: No Current gender identity: Male Physical Exam Const: COMMON NORMALS: alert HENMT: COMMON NORMALS: atraumatic HEAD & SCALP: atraumatic MOUTH: moist mucous membranes not abnormal Eye: COMMON NORMALS: EOMs intact bilaterally and conjunctivae normal CONJUNCTIVA: Yes conjunctivae normal Neck/C-Spine: COMMON NORMALS: full ROM and supple Resp: COMMON NORMALS: normal respiratory effort OTHER: +mild expiratory wheezes b/l Cardio: RATE: tachycardic GI: COMMON NORMALS: Soft to palpation and non-tender PALPATION: Yes Soft to palpation Extremity: COMMON NORMALS: full ROM Neuro: SENSORIUM/ORIENTATION: Yes alert MOTOR EXAM: No Abnormal motor strength present and Other motor observations present (no focal motor deficits) Psych: COMMON NORMALS: speech normal SPEECH: Yes normal speech MOOD & AFFECT: Yes euthymic mood Course Vital Signs: Vital signs: Vital Signs Temperature 98.4 F 06/16/21 11:27 Pulse Rate 100 06/16/21 13:09 Respiratory Rate 20 H 06/16/21 13:09 Blood Pressure 154/89 06/16/21 13:09 Pulse Oximetry 93 06/16/21 13:09 [facility] - General Adult Medical Decision Making 70-year-old male with history of COPD smoking presenting to the emergency room with complaints of 1 month of left-sided chest pain and nasal congestion. On exam, patient is afebrile, with mild expiratory wheezes bilaterally. Patient has no signs of increased accessory muscle use. Patient received DuoNeb, 500 cc of fluids., Patient was noted to be mildly tachycardic and satting at 92% on room air. Age-adjusted D-dimer within normal limit. Troponin and EKG is nonischemic. Given the fact the patient has age-adjusted D-dimer wnl, no pleuritic chest pain, I do not suspect patient has pulmonary embolism. In addition, patient has had chest pain for about 1 month with normal EKG and reassuring troponin without any high risk features, do not suspect ACS at this time. No suspicion for aortic dissection given no widened mediastinum, 2+ upper extremity pulses, or tearing pain. Patient request to have a prescription for antibiotics to go home with for his chronic sinusitis with left-sided chest pain in case that this is pneumonia. I will provide patient with a prescription for antibiotics should he need it. I discussed with patient that he is technically on 2 L of oxygen at rest. It is unclear why he is requiring oxygen but I suspect that given his advanced COPD and emphysema this could be the cause. Patient tells me that he [facility] and he will talk to his [facility] provider to see if he can be set up for oxygen due to his insurance status. Patient declined setting up oxygen to go home with. Because of patient's insurance situation, we have not set patient up for outpatient oxygen. I have given patient a pulse ox to go home with. Patient is instructed come back to the emergency room should his oxygen drops below 90%. Rx augmentin BID x 10 days Disposition: Discharge. Patient counseled regarding diagnostic impression, treatment plan. Patient given ED strict return precautions to return for continuation, worsening, or development of new symptoms. Instructed to f/u w/ PCP regarding symptoms today. Patient verbalized understanding. Lab Data : 06/16/21 12:07 06/16/21 12:07 Radiology Impressions Chest X-Ray 06/16/21 11:31 IMPRESSION: There is flattening of the right hemidiaphragm. There is elevation of the left hemidiaphragm. Laboratory Results WBC 9.5 10^3/uL (4.0-10.0) 06/16/21 12:07 RBC 4.59 10^6/uL (4.1-5.3) 06/16/21 12:07 Hgb 15.0 g/dL (11.7-16.6) 06/16/21 12:07 Hct 44.1 % (42.0-52.0) 06/16/21 12:07 MCV 96.1 fl (80-94) H 06/16/21 12:07 MCH 32.7 pg (28.0-34.0) 06/16/21 12:07 MCHC 34.0 g/dL (30.0-36.0) 06/16/21 12:07 RDW 11.7 % (12.1-15.1) L 06/16/21 12:07 Plt Count 251 10^3/cmm (130-400) 06/16/21 12:07 MPV 9.4 fL (7.4-10.4) 06/16/21 12:07 Neut % (Auto) 63.6 % 06/16/21 12:07 Lymph % (Auto) 19.8 % 06/16/21 12:07 [place] % (Auto) 8.0 % 06/16/21 12:07 Eos % (Auto) 7.3 % 06/16/21 12:07 Baso % (Auto) 0.8 % 06/16/21 12:07 Neut # (Auto) 6.04 10^3/uL (1.8-7.7) 06/16/21 12:07 Lymph # (Auto) 1.9 10^3/uL (0.8-4.8) 06/16/21 12:07 [place] # (Auto) 0.8 10^3/uL (0.2-0.9) 06/16/21 12:07 Eos # (Auto) 0.7 10^3/uL (0.0-0.8) 06/16/21 12:07 Baso # (Auto) 0.1 10^3/uL (0.0-0.1) 06/16/21 12:07 Nucleated RBC % (auto) 0 % 06/16/21 12:07 Nucleated RBCs # 0.0 /100WBC 06/16/21 12:07 D-Dimer 0.63 ug/mIFEU (0-0.59) H 06/16/21 12:07 Sodium 135 mmol/L (136-145) L 06/16/21 12:07 Potassium 4.4 mmol/L (3.5-5.1) 06/16/21 12:07 Chloride 102 mmol/L (98-107) 06/16/21 12:07 Carbon Dioxide 21 mmol/L (22-29) L 06/16/21 12:07 Anion Gap 16.4 (5-19) 06/16/21 12:07 BUN 8 mg/dL (8-23) 06/16/21 12:07 Creatinine 0.8 mg/dL (0.7-1.2) 06/16/21 12:07 GFR Calculation 95.6 mL/min (90-130) 06/16/21 12:07 Glucose 96 mg/dL (65-115) 06/16/21 12:07 Calculated Osmolality 278 mOsm/kg (285-295) L 06/16/21 12:07 Calcium 9.8 mg/dL (8.5-10.5) 06/16/21 12:07 Troponin T Gen 5 ng/L 14 ng/L (0-15) 06/16/21 12:07 C-Reactive Protein 9.5 mg/L (0.0-4.9) H 06/16/21 12:07 NT-Pro-B Natriuret Pep 64 pg/mL (0-125) 06/16/21 12:07 Procalcitonin 0.04 ng/mL (0-0.5) 06/16/21 12:07 Nasal Influ A H1 2009 PCR Not detected (NOT DETECT) 06/16/21 12:16 Coronavirus 229E (PCR) Not detected (NOT DETECT) 06/16/21 12:16 Human Metapneumovir PCR Not detected (NOT DETECT) 06/16/21 14:36 Influenza A (H1) PCR Not detected (NOT DETECT) 06/16/21 12:16 Influenza A (H3) PCR Not detected (NOT DETECT) 06/16/21 12:16 Influenza Type A (PCR) Not detected (NOT DETECT) 06/16/21 12:16 Influenza Type B (PCR) Not detected (NOT DETECT) 06/16/21 12:16 Entero/Rhino (PCR) Detected (NOT DETECT) A 06/16/21 14:36 SARS-CoV-2 (PCR) Not detected (NOT DETECT) 06/16/21 12:16 Imaging Data Other Imaging: Radiologist's impression: [address] [address] XRay Report Signed Patient: Neal Masters Unit #: [id number] : 1950 Age/Sex: 70 / M ADM Date: 06/16/21 Loc: ER Room/Bed: Attending Dr: Ordering Provider/Ordering MD: Jennifer Villanueva MD Date of Service: 06/16/21 Procedure(s): XR chest 2V* 30584 Accession Number(s): [id number] Report Number: [id number] PROCEDURE INFORMATION: Exam: XR Chest Exam date and time: 06/16/2021 11:47 AM Age: 70 years old Clinical indication: Dyspnea TECHNIQUE: Imaging protocol: XR of the chest. Views: 2 views. COMPARISON: CR (CHEST, ) 07/25/2020 5:10 AM FINDINGS: Lungs: Subsegmental atelectasis or scarring at the left base. Pleural spaces: No pleural effusion. No pneumothorax. Heart/Mediastinum: The cardiac silhouette is unchanged. No gross evidence of pneumomediastinum. Diaphragm: There is flattening of the right hemidiaphragm. There is elevation of the left hemidiaphragm. Bones/joints: No gross fracture. XR/XR chest 2V* [id number] IMPRESSION: There is flattening of the right hemidiaphragm. There is elevation of the left hemidiaphragm. ? Dictated By: Kamaljit Bonilla Signed By: Kamaljit Bonilla Signed Date/Time: 06/16/21 1241 DD/ 1147 Discharge Plan Discharge Patient Disposition: Home Clinical Impression: Chest pain, Congested nose Condition: Stable Prescriptions: New Augmentin 875-125 mg tablet 1 tab PO BID 10 Days Qty: 20 0RF No Action spironolactone 25 mg tablet 25 mg PO DAILY@08 0RF lisinopril 40 mg tablet 40 mg PO DAILY@08 0RF fluticasone propionate [Flonase Allergy Relief] 50 mcg/actuation spray,suspension 1 - 2 spray INTRANASAL DAILY 0RF aspirin [Adult Aspirin Regimen] 81 mg tablet,delayed release (DR/EC) 81 mg PO .EVERY 3 TO 4 DAYS 0RF multivitamin Tablet 1 tab PO DAILY@08 0RF albuterol sulfate 2.5 mg /3 mL (0.083 %) Solution For Nebulization 2.5 mg inhalation PRN 0RF Sore Throat Aerosol,[place] 2 spray mucous membrane PRN 0RF Tussin CF (PE-DM-guaif) 5-10-100 mg/5 mL Liquid 5 - 10 ml PO PRN 0RF ProAir HFA 90 mcg/actuation Hfa Aerosol Inhaler 2 puff INHALATION Q4H PRN (Reason: Shortness Of Breath) 0RF Symbicort 160-4.5 mcg/actuation Hfa Aerosol Inhaler 2 puff INHALATION BID 0RF PreserVision AREDS-2 250-90-40-1 mg Capsule 1 tab PO BID 0RF prednisone 10 mg tablet See Rx Instructions .ROUTE .COMPLEX Qty: 53 0RF Rx Instructions: 4 tabs a day for 5 days, 3 tabs a day for 5 days, 2 tabs a day for 5 days, 1 tab a day for 5 days, 0.5 tabs a day for 5 days Spiriva Respimat 2.5 mcg/actuation mist 2 inh inhalation Q24H Qty: 4 0RF Discharge Orders: Discharge ED (Routine); Ordered 06/16/21 Ordered By: Jennifer Villanueva Referrals: Louise Bee FNP [Primary Care Provider] - Discharge Diet: Advance as tolerated Discharge Activity: Increase activity as tolerated Patient Instructions: Chest Pain (ED) Activity Restrictions/Additional Instructions: Come back to the emergency room if your chest pain worsens, have any fever or chills, worsening shortness of breath, worsening exertional lightheadedness, or any new or concerning complaints. Please take your antibiotics as instructed. Watch out for signs of skin changes/redness, mouth redeness or swelling, nausea/vomiting, diarrhea, blood in the urine or any new or concering complaints. Please clarify with the [facility] to see if you qualify for oxygen. Coding Level of Care Code ED Seafood Processor for Chg Fwd Exam Comprehensive
[2021-06-16] MEDS: sodium chloride 0.9% 500 ML IV (12:05)
[2021-06-16] MEDS: acetaminophen 500 mg Tablet PO (12:05)
[2021-06-16 12:14] LABS: Basophils # 0.1 10^3/uL (0.0-0.1); Basophils % 0.8 %; Eosinophils # 0.7 10^3/uL (0.0-0.8); Eosinophils % 7.3 %; Hematocrit 44.1 % (42.0-52.0); Lymphocytes # 1.9 10^3/uL (0.8-4.8); Lymphocytes % 19.8 %; Mean Corpuscular Hemoglobin 32.7 pg (28.0-34.0); Mean Corpuscular Volume 96.1 fl (80-94); Mean Platelet Volume 9.4 fL (7.4-10.4); Monocytes # 0.8 10^3/uL (0.2-0.9); Neutrophils # 6.04 10^3/uL (1.8-7.7); Neutrophils % 63.6 %; Nucleated Red Blood Cells % 0 %; Platelet Count 251 10^3/cmm (130-400); Red Blood Count 4.59 10^6/uL (4.1-5.3); Red Cell Distribution Width 11.7 % (12.1-15.1); White Blood Count 9.5 10^3/uL (4.0-10.0)
[2021-06-16 12:27] VITALS: BP 156/82; PULSE 98; RESP 22; O2SAT 94
[2021-06-16 12:30] VITALS: PULSE 98; RESP 17; O2SAT 97
[2021-06-16] MEDS: ipratropium-albuterol 3 mL Neb INHALATION ×3 (12:37)
[2021-06-16 12:41] LABS: D Dimer 0.63 ug/mIFEU (0-0.59)
[2021-06-16 12:42] VITALS: PULSE 95
[2021-06-16 12:47] LABS: Troponin T (5th) Once 14 ng/L (0-15)
[2021-06-16 12:53] LABS: Procalcitonin 0.04 ng/mL (0-0.5)
[2021-06-16 12:54] LABS: NT Pro B Type Natriuretic Pept 64 pg/mL (0-125)
[2021-06-16 13:05] LABS: Blood Urea Nitrogen 8 mg/dL (8-23); C Reactive Protein 9.5 mg/L (0.0-4.9); Calcium 9.8 mg/dL (8.5-10.5); Carbon Dioxide 21 mmol/L (22-29); Chloride 102 mmol/L (98-107); Glomerular Filtration Rate 95.6 mL/min (90-130); Glucose 96 mg/dL (65-115); Osmolality Calculated 278 mOsm/kg (285-295); Sodium 135 mmol/L (136-145)
[2021-06-16 13:07] LABS: Anion Gap 16.4 (5-19); Potassium 4.4 mmol/L (3.5-5.1)
[2021-06-16 13:09] VITALS: BP 154/89; PULSE 100; RESP 20; O2SAT 93
[2021-06-16 14:26] LABS: Adenovirus Not Detected (NOT DETECT); Chlamydia Pneumoniae Not Detected (NOT DETECT); Coronavirus 229E,HKU1,NL63,OC4 Not Detected (NOT DETECT); Human Metapneumovirus Not Detected (NOT DETECT); Human Rhinovirus/Enterovirus Detected (NOT DETECT); Influenza A Not Detected (NOT DETECT); Influenza A H1 Not Detected (NOT DETECT); Influenza A H1-2009 Not Detected (NOT DETECT); Influenza A H3 Not Detected (NOT DETECT); Influenza B Not Detected (NOT DETECT); Mycoplasma Pneumoniae Not Detected (NOT DETECT); Parainfluenza Virus Type 1 Not Detected (NOT DETECT); Parainfluenza Virus Type 2 Not Detected (NOT DETECT); Parainfluenza Virus Type 3 Not Detected (NOT DETECT); Parainfluenza Virus Type 4 Not Detected (NOT DETECT); Respiratory Syncytial Virus A Not Detected (NOT DETECT); Respiratory Syncytial Virus B Not Detected (NOT DETECT); SARS-COV-2 Not Detected (NOT DETECT)
[2021-06-16 14:36] LABS: Human Metapneumovirus Not Detected (NOT DETECT); Human Rhinovirus/Enterovirus Detected (NOT DETECT); Results from Genmark
[2021-06-16 15:01] LABS: Influenza A Not Detected (NOT DETECT); Influenza A H1 Not Detected (NOT DETECT); Influenza A H1-2009 Not Detected (NOT DETECT); Influenza A H3 Not Detected (NOT DETECT); Influenza B Not Detected (NOT DETECT); Results from Genmark
== END 2021-06-16 13:09 | disposition home or self-care (01) ==
PROVIDERS: Emergency Provider Emergency Medicine; PCP Nurse Practitioner
DX: R07.9 Chest pain, unspecified (principal); R09.81 Nasal congestion; Z79.82 Long term (current) use of aspirin; I10 Essential (primary) hypertension; F17.210 Nicotine dependence, cigarettes, uncomplicated; Z20.822 Contact with and (suspected) exposure to COVID-19
CPT/HCPCS: 71046; 80048; 83880; 84145; 84484; 85025; 85378; 86140; 87631; 87635; 87801; 93005; 94640; 96360; 99284; J7040

== ENCOUNTER 2021-06-18 15:06 | Observation (INO) | payer OTHER, MEDICARE, SELFPAY ==
[2021-06-18] VITALS (7 sets, daily range): BP systolic 147–185; BP diastolic 80–110; PULSE 86–109; RESP 20–26; TEMP 36.7; O2SAT 91–94; BMI 32.1
--- NOTE | 2021-06-18 16:24 | XRR_ITS ---
PROCEDURE INFORMATION: Exam: XR Chest Exam date and time: 06/18/2021 4:39 PM Age: 70 years old Clinical indication: Shortness of breath; Additional info: Dyspnea TECHNIQUE: Imaging protocol: XR of the chest. Views: 1 view. COMPARISON: CR (CHEST, ) 06/16/2021 11:47 AM FINDINGS: Lungs: Left lower lobe atelectasis versus minimal infiltrate. Pleural spaces: Unremarkable. No pleural effusion. No pneumothorax. Heart/Mediastinum: Unremarkable. No cardiomegaly. Bones/joints: Unremarkable. XR/XR chest 1V portable [id number] IMPRESSION: Left lower lobe atelectasis versus minimal infiltrate.
--- NOTE | 2021-06-18 16:24 | ECG_ITS ---
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 Measurements Intervals [place] Rate: 99 P: 57 NV: 207 QRS: 40 QRSD: 95 T: 36 QT: 337 QTc: 433 Interpretive Statements SINUS RHYTHM POSSIBLE INFERIOR MYOCARDIAL INFARCTION , PROBABLY OLD [40+ ms Q WAVE AND/OR ST/T ABNORMALITY IN II/aVF] Compared to ECG 06/16/2021 12:23:37 No significant changes Electronically Signed On 06-19-2021 17:04:58 CDT by Jose Flores M.D. [id number]
--- NOTE | 2021-06-18 17:25 | PC.NURSE ---
Patient states he was here on Thursday and was told he needed to stay but did not want to. Patient states he is congested, coughing, and having chest pressure. Patient in bed, denies any needs at this time. Patient states that he is still smoking but would like to quit due to how unwell he has been feeling. Breathing even and non-labored at this time.
--- NOTE | 2021-06-18 17:26 | W.ED.GENADLT ---
HPI - General Adult General: Chief complaint: Shortness of Breath/Dyspnea Stated complaint: sob / weakness / congestion Time Seen by Provider: 06/18/21 16:22 History of Present Illness: Patient is a 70-year-old male with a history of COPD and smoking who presents to the emergency room for evaluation of worsening chest burning sensation nasal congestion since discharge on Thursday. Patient was initially seen and evaluated Thursday for complaints of left-sided chest pain and burning. At that point time, patient was noted to be satting at 91 to 92% patient elected to go home with close follow-up with the [facility] to get set up for home oxygen. Patient reports that since discharging home, he has experienced worsening left-sided chest pain and cough. Patient in addition reports that her oxygen number has not improved and he has had difficulty setting up home oxygen at the [facility]. Patient denies any pleuritic chest pain, exertional chest pain, nausea/vomiting, diarrhea melena/hematochezia. Patient denies any fever but reports chill and productive sputum. Onset:chronic acutely worsening x 2 days Duration:ongoing Location:home Severity:moderate Associated symptoms: Reports dyspnea; Deny chest pain, nausea, rash, palpitations or vomiting Review of Systems Const: Denies: fever(s) or chills Eyes: Denies: change in vision ENMT: Denies: mouth pain Card: Denies: chest pain or palpitations Resp: Reports: dyspnea and productive cough; Denies: non-productive cough GI: Denies: abdominal pain, nausea, vomiting or diarrhea : Denies: dysuria Musc: Denies: extremity pain Skin/Breast: Denies: rash or new lesions Neuro: Denies: weakness in extremities Psych: Reports: other (Normal mood) [place]/Lymph: Denies: easy bruising PFSH ED PFSH: Medical History Deviated septum HTN (hypertension) Nasal turbinate hypertrophy Smoking addiction Surgical History H/O elbow surgery History of hernia surgery History of shoulder surgery Family History Mother Lung disease Other Cancer Social History Smoking and tobacco status: current every day smoker cigarettes Packs smoked per day: 1 Years cigarettes smoked: 53 Quit status (tobacco): considering quitting Second hand smoke exposure: Yes Smoking risk assessment/counseling performed?: Yes Alcohol intake: current Alcohol intake frequency: 0-2 Drinks per Day Alcohol type: beer Counseling given: Yes Counseling given: No Lives independently: Yes Household members: none Marital status: service: Yes Current occupational status: retired History of recent travel: No Current gender identity: Male Physical Exam Const: COMMON NORMALS: alert HENMT: COMMON NORMALS: atraumatic HEAD & SCALP: atraumatic MOUTH: moist mucous membranes not abnormal Eye: COMMON NORMALS: EOMs intact bilaterally and conjunctivae normal CONJUNCTIVA: Yes conjunctivae normal Neck/C-Spine: COMMON NORMALS: full ROM and supple Resp: COMMON NORMALS: normal respiratory effort OTHER: +wheezes b/l Cardio: COMMON NORMALS: regular rate RATE: regular rate GI: COMMON NORMALS: Soft to palpation and non-tender PALPATION: Yes Soft to palpation Extremity: COMMON NORMALS: full ROM Neuro: SENSORIUM/ORIENTATION: Yes alert MOTOR EXAM: No Abnormal motor strength present and Other motor observations present (no focal motor deficits) Psych: COMMON NORMALS: speech normal SPEECH: Yes normal speech MOOD & AFFECT: Yes euthymic mood Course Vital Signs: Vital signs: Vital Signs Temperature 98.1 F 06/18/21 15:18 Pulse Rate 88 06/18/21 19:04 Respiratory Rate 22 H 06/18/21 19:04 Blood Pressure 156/110 06/18/21 19:04 Pulse Oximetry 93 06/18/21 19:04 MDM - General Adult Medical Decision Making 70-year-old male with history of COPD/smoking presenting to the emergency room for evaluation of dyspnea cough x2 days worsening since discharge. On exam, patient is noted to be satting at 88 to 91% on room air. Patient has no known prior oxygen requirement. Oxygen improved to 94% on 3 L. Patient is noted to be wheezing bilaterally with no accessory muscle use. Patient received DuoNeb and Solu-Medrol with mild improvement symptom continues to have mild COPD exacerbation. Patient is afebrile, white count 7.6. X-ray chest showed minimal right lower lobe infiltrates. Patient received ceftriaxone azithromycin in the emergency room. Given new oxygen requirement, wheezing, this is concerning for mild COPD exacerbation. Patient grew rhinovirus last time.however given new infiltrate, will treat empirically with ceftriaxone azithromycin. Patient will need further treatment at this time. Disposition: admission Lab Data : 06/18/21 17:15 06/18/21 17:15 Radiology Impressions Chest X-Ray 06/18/21 16:24 IMPRESSION: Left lower lobe atelectasis versus minimal infiltrate. Laboratory Results WBC 7.6 10^3/uL (4.0-10.0) 06/18/21 17:15 RBC 4.38 10^6/uL (4.1-5.3) 06/18/21 17:15 Hgb 14.3 g/dL (11.7-16.6) 06/18/21 17:15 Hct 42.9 % (42.0-52.0) 06/18/21 17:15 MCV 97.9 fl (80-94) H 06/18/21 17:15 MCH 32.6 pg (28.0-34.0) 06/18/21 17:15 MCHC 33.3 g/dL (30.0-36.0) 06/18/21 17:15 RDW 11.6 % (12.1-15.1) L 06/18/21 17:15 Plt Count 215 10^3/cmm (130-400) 06/18/21 17:15 MPV 9.3 fL (7.4-10.4) 06/18/21 17:15 Neut % (Auto) 59.4 % 06/18/21 17:15 Lymph % (Auto) 22.3 % 06/18/21 17:15 [place] % (Auto) 9.5 % 06/18/21 17:15 Eos % (Auto) 8.0 % 06/18/21 17:15 Baso % (Auto) 0.5 % 06/18/21 17:15 Neut # (Auto) 4.52 10^3/uL (1.8-7.7) 06/18/21 17:15 Lymph # (Auto) 1.7 10^3/uL (0.8-4.8) 06/18/21 17:15 [place] # (Auto) 0.7 10^3/uL (0.2-0.9) 06/18/21 17:15 Eos # (Auto) 0.6 10^3/uL (0.0-0.8) 06/18/21 17:15 Baso # (Auto) 0.0 10^3/uL (0.0-0.1) 06/18/21 17:15 Nucleated RBC % (auto) 0 % 06/18/21 17:15 Nucleated RBCs # 0.0 /100WBC 06/18/21 17:15 Specimen Type Arterial 06/18/21 07:45 Sample Site Radial, right 06/18/21 07:45 ABG pH 7.39 (7.35-7.45) 06/18/21 07:45 ABG pCO2 41.0 mmHg (35-45) 06/18/21 07:45 ABG pO2 69.0 mmHg (80.0-100.0) L 06/18/21 07:45 ABG HCO3 25.0 mmol/L (22-26) 06/18/21 07:45 ABG Base Excess 0.0 mmol/L (-2.0-2.0) 06/18/21 07:45 Daniel Test Pos 06/18/21 07:45 Hematocrit 43.0 % (42-52) 06/18/21 07:45 O2 Delivery Device Nc 06/18/21 07:45 O2 Liters/Min 3.0 % 06/18/21 07:45 FiO2 32.0 % 06/18/21 07:45 Parts Consultant ID Gd 06/18/21 07:45 Sodium 133 mmol/L (136-145) L 06/18/21 17:15 Potassium 3.9 mmol/L (3.5-5.1) 06/18/21 17:15 Chloride 99 mmol/L (98-107) 06/18/21 17:15 Carbon Dioxide 23 mmol/L (22-29) 06/18/21 17:15 Anion Gap 14.9 (5-19) 06/18/21 17:15 BUN 8 mg/dL (8-23) 06/18/21 17:15 Creatinine 0.8 mg/dL (0.7-1.2) 06/18/21 17:15 GFR Calculation 95.6 mL/min (90-130) 06/18/21 17:15 Glucose 103 mg/dL (65-115) 06/18/21 17:15 Calculated Osmolality 275 mOsm/kg (285-295) L 06/18/21 17:15 Calcium 9.3 mg/dL (8.5-10.5) 06/18/21 17:15 Troponin T Baseline 11 ng/L (0-15) 06/18/21 17:15 NT-Pro-B Natriuret Pep 49 pg/mL (0-125) 06/18/21 17:15 Imaging Data Other Imaging: Radiologist's impression: [address] [address] XRay Report Signed Patient: Neal Masters Unit #: [id number] : 1950 Age/Sex: 70 / M ADM Date: 06/18/21 Loc: ER Room/Bed: Attending Dr: Ordering Provider/Ordering MD: Jennifer Villanueva MD Date of Service: 06/18/21 Procedure(s): XR chest 1V portable [id number] Accession Number(s): [id number] Report Number: [id number] PROCEDURE INFORMATION: Exam: XR Chest Exam date and time: 06/18/2021 4:39 PM Age: 70 years old Clinical indication: Shortness of breath; Additional info: Dyspnea TECHNIQUE: Imaging protocol: XR of the chest. Views: 1 view. COMPARISON: CR (CHEST, ) 06/16/2021 11:47 AM FINDINGS: Lungs: Left lower lobe atelectasis versus minimal infiltrate. Pleural spaces: Unremarkable. No pleural effusion. No pneumothorax. Heart/Mediastinum: Unremarkable. No cardiomegaly. Bones/joints: Unremarkable. XR/XR chest 1V portable [id number] IMPRESSION: Left lower lobe atelectasis versus minimal infiltrate. ? Dictated By: Ji De Luna MD Signed By: Ji De Luna MD Signed Date/Time: 06/18/21 9267 DD/ 5179 Discharge Plan Discharge Patient Disposition: Admitted As Inpatient Clinical Impression: Acute dyspnea, Bilateral wheezing, COPD exacerbation, Pneumonia Condition: Stable Coding Level of Care Code ED Biology Internship for Chg Fwd Exam Comprehensive
[2021-06-18 17:27] LABS: Basophils % 0.5 %; Eosinophils # 0.6 10^3/uL (0.0-0.8); Hematocrit 42.9 % (42.0-52.0); Hemoglobin 14.3 g/dL (11.7-16.6); Lymphocytes # 1.7 10^3/uL (0.8-4.8); Lymphocytes % 22.3 %; Mean Corpuscular HGB Conc 33.3 g/dL (30.0-36.0); Mean Corpuscular Hemoglobin 32.6 pg (28.0-34.0); Mean Corpuscular Volume 97.9 fl (80-94); Mean Platelet Volume 9.3 fL (7.4-10.4); Monocytes # 0.7 10^3/uL (0.2-0.9); Monocytes % 9.5 %; Neutrophils # 4.52 10^3/uL (1.8-7.7); Neutrophils % 59.4 %; Nucleated Red Blood Cells % 0 %; Platelet Count 215 10^3/cmm (130-400); Red Blood Count 4.38 10^6/uL (4.1-5.3); Red Cell Distribution Width 11.6 % (12.1-15.1); White Blood Count 7.6 10^3/uL (4.0-10.0)
--- NOTE | 2021-06-18 17:31 | PC.NURSE ---
residential monitor on patient, sinus rhythm noted.
--- NOTE | 2021-06-18 17:32 | PC.NURSE ---
Patient does not wear oxygen at home, he states his pcp wanted him to but he was going to have to go to [place] and he did not. Patient currently on 2 liters nc at 95%.
[2021-06-18] MEDS: ipratropium-albuterol 3 mL Neb INHALATION ×4 (18:00→23:19)
[2021-06-18 18:01] LABS: ABG PH Result 7.39 (7.35-7.45); Blood Gas Allen Test Pos; Blood Gas Operator Identificat GD; Blood Gas Sample Site Radial, right; Blood Gas Sample Type Arterial; Oxygen Device NC
[2021-06-18 18:07] LABS: Troponin(5th) Baseline 11 ng/L (0-15)
[2021-06-18 18:08] LABS: Anion Gap 14.9 (5-19); Blood Urea Nitrogen 8 mg/dL (8-23); Calcium 9.3 mg/dL (8.5-10.5); Carbon Dioxide 23 mmol/L (22-29); Chloride 99 mmol/L (98-107); Glomerular Filtration Rate 95.6 mL/min (90-130); Glucose 103 mg/dL (65-115); NT Pro B Type Natriuretic Pept 49 pg/mL (0-125); Osmolality Calculated 275 mOsm/kg (285-295); Potassium 3.9 mmol/L (3.5-5.1); Sodium 133 mmol/L (136-145)
--- NOTE | 2021-06-18 18:24 | ECG_ITS ---
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 Measurements Intervals [place] Rate: 101 P: 43 DE: 198 QRS: 27 QRSD: 94 T: 25 QT: 332 QTc: 432 Interpretive Statements SINUS TACHYCARDIA INFERIOR MYOCARDIAL INFARCTION , PROBABLY OLD [40+ ms Q WAVE AND/OR ST/T ABNORMALITY IN II/aVF] Compared to ECG 06/18/2021 17:22:57 Sinus rhythm no longer present Myocardial infarct finding still present Electronically Signed On 06-19-2021 17:15:52 CDT by Jose Flores M.D. [id number]
[2021-06-18] MEDS: nicotine 21 mg Patch 1 PATCH TRANSDERMA (19:07)
[2021-06-18] MEDS: cefTRIAXone 1,000 MG in sodium chloride 0.9% (plus) 50 ML 100 MG IV (19:07)
--- NOTE | 2021-06-18 19:07 | PC.NURSE ---
Dr. Villanueva stated that patient is allowed to have water at this time.
--- NOTE | 2021-06-18 19:18 | PC.NURSE ---
Report given to Kirstin PUTNAM.
--- NOTE | 2021-06-18 19:42 | PM.HP ---
Providers/Chief Complaint Primary Care Provider: FAYE Solares Chief Complaint: sob/weakness/congestion History of Present Illness Pleasant 7-year-old gentleman with history of COPD, current smoker, but states he is now quitting, was assessed in ER on Thursday due to pleuritic left side discomfort, nasal congestion, productive cough, reports on Thursday was also having nausea vomiting and diarrhea at the same time. Serologies obtained on the day were negative for COVID-19 or influenza. Tested positive for enterorhinovirus. He returns to ER due to persistent pleuritic discomfort, productive cough, chest congestion, wheezing. He is now found to have new oxygen requirement, requiring 2 L by nasal cannula to maintain saturations in the low 90s. He is not normally on oxygen supplementation. Chest x-ray with noted left lower lobe atelectasis versus minimal infiltrate. He reports productive cough of yellowish sputum. Review of Systems Const: Denies: fever(s), chills, body aches or malaise Eyes: Denies: change in vision or eye redness ENMT: Denies: throat pain, oral sores or ear or mastoid pain Card: Denies: chest pain, edema, pre-syncope or dyspnea on exertion Resp: Reports: dyspnea, productive cough, pain on inspiration and change in phlegm color; Denies: hemoptysis GI: Reports: nausea, vomiting (On Thursday) and diarrhea (On Thursday); Denies: abdominal pain, constipation, hematochezia or melena : Denies: flank pain, difficulty urinating, urinary frequency or hematuria Musc: Denies: back pain, joint swelling or joint redness Skin/Breast: Denies: rash, sores or new lesions Neuro: Denies: headache(s), numbness in extremities, weakness in extremities, dizziness, confusion or seizure-like activity Endo: Denies: polyuria or polydipsia Jamison/Lymph: Denies: easy bleeding or purpura All/Imm: Denies: urticaria, throat swelling or tongue swelling Medications/Allergies Home Medications Medication Instructions Recorded Confirmed Last Taken Type fluticasone propionate 50 1 - 2 spray INTRANASAL DAILY 04/28/19 06/18/21 Unknown History mcg/actuation nasal spray,suspension (Flonase Allergy Relief) lisinopril 40 mg tablet 40 mg PO DAILY@08 02/09/0906/18/21 06/18/21 History spironolactone 25 mg tablet 25 mg PO DAILY@08 04/28/19 06/18/21 06/18/21 History aspirin 81 mg tablet,delayed 81 mg PO .EVERY 3 TO 4 DAYS 05/17/19 06/18/21 07/23/20 History release (Adult Aspirin Regimen) albuterol sulfate 2.5 mg INHALATION Q6H PRN 07/25/20 06/18/21 Unknown History albuterol sulfate 90 mcg/actuation 2 puff INHALATION Q4H PRN 07/25/20 06/18/21 07/24/20 History aerosol inhaler (ProAir HFA) budesonide-formoterol HFA 160 2 puff INHALATION BID 07/25/20 06/18/21 06/18/21 History mcg-4.5 mcg/actuation aerosol inhaler (Symbicort) multivitamin 1 tab PO DAILY@08 07/25/20 06/18/21 06/18/21 History phenol-phenolate sodium mucosal 2 spray MUCOUS MEMBRANE PRN 07/25/20 06/18/21 Unknown History aerosol spray (Sore Throat) kqkoqhkyefjsl-EI-vlmtyvjpnsy 5 5 - 10 ml PO Q6H PRN 07/25/20 06/18/21 07/24/20 History mg-10 mg-100 mg/5 mL oral liquid (Tussin CF (PE-DM-guaif)) vit C 250 mg-vit E 90 mg-zinc 40 1 tab PO BID 07/25/20 06/18/21 06/18/21 History mg-copper 1 cp-bmdpft-haomaf capsule (PreserVision AREDS-2) amoxicillin 875 mg-potassium 1 tab PO BID 10 Days #20 tab 06/16/21 06/18/21 Unknown Rx clavulanate 125 mg tablet (Augmentin) Allergies Allergy/AdvReac Type Severity Reaction Status Date / Time No Known Allergies Allergy Verified 08/13/20 09:45 PFSH Acute PFSH: Medical History Deviated septum HTN (hypertension) Nasal turbinate hypertrophy Smoking addiction Surgical History H/O elbow surgery History of hernia surgery History of shoulder surgery Family History Mother Lung disease Other Cancer Social History Smoking and tobacco status: current every day smoker cigarettes Packs smoked per day: 1 Years cigarettes smoked: 53 Quit status (tobacco): considering quitting Second hand smoke exposure: Yes Smoking risk assessment/counseling performed?: Yes Alcohol intake: current Alcohol intake frequency: 0-2 Drinks per Day Alcohol type: beer Counseling given: Yes Counseling given: No Lives independently: Yes Household members: none Marital status: service: Yes Current occupational status: retired History of recent travel: No Current gender identity: Male Vitals/I&O/Wt Last Vital Signs Temp 98.1 F 06/18/21 15:18 Pulse 88 06/18/21 19:04 Resp 22 H 06/18/21 19:04 BP 156/110 06/18/21 19:04 Pulse Ox 93 06/18/21 19:04 Weight last 48 hrs Weight 104.326 kg Physical Exam Const: COMMON NORMALS: no acute distress and patient oriented x3 HENMT: COMMON NORMALS: oropharynx normal Neck/C-Spine: COMMON NORMALS: no JVD Resp: COMMON NORMALS: normal respiratory effort and clear to auscultation bilaterally AUSCULTATION: wheezes and diminished lung sounds Cardio: COMMON NORMALS: no JVD, regular rhythm, S1 normal heart sound present, S2 normal heart sound present and No murmurs present (Cardio) RHYTHM: regular rhythm HEART SOUNDS: S1 normal heart sound present and S2 normal heart sound present GI: COMMON NORMALS: Normal to inspection, nondistended, normoactive bowel sounds present, Soft to palpation and non-tender PALPATION: Yes Soft to palpation Extremity: COMMON NORMALS: no joint enlargement and no pedal edema Neuro: COMMON NORMALS: patient oriented x3 and moves all extremities Skin: COMMON NORMALS: no rashes or lesions noted GENERAL SKIN EXAM: no rashes or lesions noted Data : 06/18/21 17:15 06/18/21 17:15 A&P Assessment and plan (1) COPD exacerbation: Productive cough, dyspnea, hypoxia. Rhino enterovirus positive on 06/16. With nasal congestion. At that time nausea and vomiting. Now also left lower lobe pneumonia. Continue oxygen support. May need oxygen on discharge. Continue to biotics with ceftriaxone and azithromycin. Collect sputum culture. Continue IV steroid. Neb treatments. Flutter valve. I-S. Continue inhaled Giurgius tonight. Status: Acute (2) Pneumonia: Ceftriaxone and azithromycin, sputum culture. Possibly secondary to postnasal drip with enterorhinovirus infection. Possibly additionally secondary to aspiration after episode of vomiting. Status: Acute (3) Hypoxia: Oxygen support as tolerating. Status: Acute (4) Lung nodule: Was referred for follow-up with pulmonology at [facility] last time, unclear whether he followed up. Please confirm and refer if needed on discharge. Status: Acute (5) Smoking addiction: Discussed smoking cessation with him for 5 minutes. He reports he is quitting. Continue to encourage cessation. Nicotine replacement as needed. Status: Acute Plan HTN Nasal turbinate hypertrophy Attestations Medical Necessity Statement*: Place in observation for additional assessment and management of COPD exacerbation, new hypoxia, pneumonia, following enterorhinovirus infection. Coding Level of Care Code Acute Swatch Paster for [facility] Diagnoses COPD exacerbation J44.1 Pneumonia J18.9 Hypoxia R09.02 Lung nodule R91.1 Smoking addiction F17.200
[2021-06-18 20:18] LABS: Troponin 5 2HR 9.42 ng/L (0-15)
[2021-06-18] MEDS: azithromycin 250 mg Tablet 500 MG PO (20:26)
[2021-06-18 20:39] LABS: Troponin 5 2HR Delta -1.58 ABS# (0-10)
--- NOTE | 2021-06-18 22:24 | ECG_ITS ---
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 Measurements Intervals [place] Rate: 109 P: 66 [place]: 193 QRS: 55 QRSD: 102 T: 22 QT: 329 QTc: 444 Interpretive Statements SINUS TACHYCARDIA POSSIBLE INFERIOR MYOCARDIAL INFARCTION , PROBABLY OLD [30 ms Q WAVE IN II/aVF] ABNORMAL RHYTHM ECG Compared to ECG 06/18/2021 20:21:07 No significant changes Electronically Signed On 06-19-2021 17:16:20 CDT by Jose Flores M.D. [id number]
[2021-06-18 23:18] LABS: Troponin 5 6HR 10.19 ng/L (0-15)
[2021-06-18 23:21] LABS: Troponin 5 6HR Delta -0.81 ng/L (0-12)
[2021-06-19] VITALS (11 sets, daily range): BP systolic 157–190; BP diastolic 76–100; PULSE 94–120; RESP 18–24; TEMP 36.5–36.7; O2SAT 88–95; BMI 32.1
[2021-06-19] MEDS: guaiFENesin 600 mg Tablet 1200 MG PO ×3 (00:25→18:29)
[2021-06-19] MEDS: amlodipine 5 mg Tablet PO (00:26)
[2021-06-19] MEDS: heparin 5,000 unit/mL INJ 1 mL 5000 UNIT SUBCUT ×4 (00:26→23:25)
--- NOTE | 2021-06-19 00:37 | PC.NURSE ---
i reported high pulse 116 to nurse
[2021-06-19] MEDS: efferdent effervescent 1 EACH DENTAL (01:25)
[2021-06-19] MEDS: ipratropium-albuterol 3 mL Neb INHALATION ×2 (03:19→09:05)
--- NOTE | 2021-06-19 04:35 | PC.NURSE ---
i reported high pulse 110 to nurse
[2021-06-19 04:42] LABS: Basophils % 0.3 %; Hematocrit 41.6 % (42.0-52.0); Hemoglobin 14.2 g/dL (11.7-16.6); Lymphocytes # 0.6 10^3/uL (0.8-4.8); Lymphocytes % 7.8 %; Mean Corpuscular HGB Conc 34.1 g/dL (30.0-36.0); Mean Corpuscular Hemoglobin 32.9 pg (28.0-34.0); Mean Corpuscular Volume 96.5 fl (80-94); Mean Platelet Volume 9.6 fL (7.4-10.4); Monocytes # 0.1 10^3/uL (0.2-0.9); Monocytes % 1.5 %; Neutrophils # 7.21 10^3/uL (1.8-7.7); Nucleated Red Blood Cells % 0 %; Platelet Count 230 10^3/cmm (130-400); Red Blood Count 4.31 10^6/uL (4.1-5.3); Red Cell Distribution Width 11.4 % (12.1-15.1)
[2021-06-19 05:00] LABS: Anion Gap 16.1 (5-19); Blood Urea Nitrogen 11 mg/dL (8-23); Calcium 9.8 mg/dL (8.5-10.5); Carbon Dioxide 22 mmol/L (22-29); Chloride 99 mmol/L (98-107); Glomerular Filtration Rate 95.6 mL/min (90-130); Glucose 225 mg/dL (65-115); Osmolality Calculated 282 mOsm/kg (285-295); Potassium 4.1 mmol/L (3.5-5.1); Sodium 133 mmol/L (136-145)
[2021-06-19] MEDS: lisinopril 20 mg Tablet 40 MG PO (09:38)
[2021-06-19] MEDS: spironolactone 25 mg Tablet PO (09:40)
[2021-06-19] MEDS: nicotine 21 mg Patch 1 PATCH TRANSDERMA (09:40)
--- NOTE | 2021-06-19 12:18 | PC.CHAP ---
Pastoral Care Encounter/Spiritual Assessment Type of Contact [] Declined train gate attendant visit [] Patient/Family/Request visit [] Outpatient visit [] Follow-up visit [] Physician referral [] Code/Alert [xx] Routine visit [] Staff referral [] Actively dying [] Patient sleeping [] Family support [] [] Out of room [] Palliative care [] [] Receiving care in room [] Pre-surgical visit [] Trauma [] Long length of stay [] ICU visit [] Other: Relational/Emotional Strength [x] Patient feels connected with others/family/visitors/staff [] Distress [] Loneliness/isolation [] Abandonment Spirituality of Patient [x] Person of Isela [x] Attends Adventism of their Isela [x] Believes in Prayer [] Reads Bible or Adventism materials [x] There are Spiritual issues to be addressed Electric Dolly Operator Interventions [x] Prayer [x] Active listening [x] Non-anxious presence [x] Spiritual/emotional support [] Crisis/trauma care [] Spiritual counseling [] Bereavement support [] Provided bereavement packet [] Provided Bible/devotional materials [] Provided toy/stuffed animal, coloring book to patient or family member [] Provided Communion [] Anointing/[place] [] Salvation [x]x Completed spiritual assessment [] Other: Impact on Illness or Injury [] Angry [] Fearful [] Anxious [] Often cries [] Exhaustion [] Unable to work [] Unable to attend methodist [] Unable to walk/stand [] Unable to read [] Unable to drive [] Unable to eat/drink [] Unable to sleep [] Unable to be with family [] Patient intubated [] Other: Summary Time spent with patient 10 min
--- NOTE | 2021-06-19 12:31 | P.PN_ITS ---
Subjective Subjective: patient tells me he is breathing better, denies fevers, no chest pain, he tells me if he needs oxygen he needs it form the [place] Vitals/I&O/Wt Last Vital Signs Temp 97.7 F 06/19/21 11:11 Pulse 105 H 06/19/21 11:11 Resp 18 06/19/21 11:11 BP 167/80 06/19/21 11:11 Pulse Ox 92 06/19/21 11:11 06/18/21 06/19/21 06/19/21 22:59 06:59 14:59 Intake Total 240 / 240 360 / 360 Output Total 300 / 300 Balance -60 / -60 360 / 360 Weight last 48 hrs Weight 104.326 kg Weight 104.326 kg Physical Exam Const: COMMON NORMALS: no acute distress and patient oriented x3 Resp: COMMON NORMALS: normal respiratory effort, No retractions, No use of accessory muscles and clear to auscultation bilaterally AUSCULTATION: clear to auscultation bilaterally Cardio: COMMON NORMALS: regular rate, regular rhythm, S1 normal heart sound present and S2 normal heart sound present RATE: regular rate RHYTHM: regular rhythm HEART SOUNDS: S1 normal heart sound present and S2 normal heart sound present GI: COMMON NORMALS: Normal to inspection, nondistended, normoactive bowel sounds present, Soft to palpation and non-tender PALPATION: Yes Soft to palpation Extremity: COMMON NORMALS: no pedal edema Neuro: COMMON NORMALS: patient oriented x3 Psych: COMMON NORMALS: mental status grossly normal Data : 06/19/21 04:10 06/19/21 04:10 A&P Assessment and plan (1) COPD exacerbation: Productive cough, dyspnea, hypoxia. Rhino enterovirus positive on 06/16. With nasal congestion. At that time nausea and vomiting. Now also left lower lobe pneumonia. Continue oxygen support. May need oxygen on discharge. Continue to biotics with ceftriaxone and azithromycin. Collect sputum culture. Continue IV steroid. Neb treatments. Flutter valve. I-S. Continue inhaled Giurgius tonight. get up out of bed monitor respiratory status Status: Acute (2) Pneumonia: Ceftriaxone and azithromycin, sputum culture. Possibly secondary to postnasal drip with enterorhinovirus infection. Possibly additionally secondary to aspiration after episode of vomiting. Status: Acute (3) Hypoxia: Oxygen support as tolerating. Status: Acute (4) Lung nodule: Was referred for follow-up with pulmonology at [facility] last time, unclear whether he followed up. Please confirm and refer if needed on dis charge. Status: Acute (5) Smoking addiction: Discussed smoking cessation with him for 5 minutes. He reports he is quitting. Continue to encourage cessation. Nicotine replacement as needed. Status: Acute Plan HTN Nasal turbinate hypertrophy Attestations Medical Necessity Statement*: patient requires hospitalization for copd, pna Coding Level of Care Code Acute Classroom Teacher for [facility] Diagnoses COPD exacerbation J44.1 Pneumonia J18.9 Hypoxia R09.02 Lung nodule R91.1 Smoking addiction F17.200
[2021-06-19] MEDS: azithromycin 500 MG in sodium chloride 0.9% 250 ML 250 MG IV (18:20)
--- NOTE | 2021-06-19 18:39 | PC.NURSE ---
i reported high pulse 120 to nurse
[2021-06-19] MEDS: cefTRIAXone 1,000 MG in sodium chloride 0.9% (plus) 50 ML 100 MG IV (20:31)
[2021-06-19] MEDS: trazodone 50 mg Tablet 25 MG PO (23:26)
[2021-06-20] VITALS (14 sets, daily range): BP systolic 130–163; BP diastolic 67–89; PULSE 85–119; RESP 16–22; TEMP 36.4–36.8; O2SAT 84–97
--- NOTE | 2021-06-20 04:50 | PC.NURSE ---
Pt lying in bed resting with eyes closed. Resp even and non-labored no distress noted. Pt had no c/o pain or discomfort at the present time. No needs voiced. Call light in reach.
[2021-06-20 05:16] LABS: Basophils % 0.1 %; Hematocrit 42.4 % (42.0-52.0); Hemoglobin 14.2 g/dL (11.7-16.6); Lymphocytes # 0.9 10^3/uL (0.8-4.8); Lymphocytes % 4.4 %; Mean Corpuscular HGB Conc 33.5 g/dL (30.0-36.0); Mean Corpuscular Hemoglobin 33.2 pg (28.0-34.0); Mean Corpuscular Volume 99.1 fl (80-94); Mean Platelet Volume 9.8 fL (7.4-10.4); Monocytes # 0.5 10^3/uL (0.2-0.9); Monocytes % 2.5 %; Neutrophils # 19.68 10^3/uL (1.8-7.7); Neutrophils % 92.2 %; Nucleated Red Blood Cells % 0 %; Platelet Count 262 10^3/cmm (130-400); Red Blood Count 4.28 10^6/uL (4.1-5.3); Red Cell Distribution Width 11.9 % (12.1-15.1); White Blood Count 21.4 10^3/uL (4.0-10.0)
[2021-06-20 05:48] LABS: Anion Gap 16.3 (5-19); Blood Urea Nitrogen 19 mg/dL (8-23); Calcium 9.5 mg/dL (8.5-10.5); Carbon Dioxide 23 mmol/L (22-29); Chloride 101 mmol/L (98-107); Glomerular Filtration Rate 111.5 mL/min (90-130); Glucose 161 mg/dL (65-115); Osmolality Calculated 288 mOsm/kg (285-295); Potassium 4.3 mmol/L (3.5-5.1); Sodium 136 mmol/L (136-145)
[2021-06-20] MEDS: ipratropium-albuterol 3 mL Neb INHALATION ×3 (08:17→20:39)
[2021-06-20] MEDS: spironolactone 25 mg Tablet PO (10:13)
[2021-06-20] MEDS: guaiFENesin 600 mg Tablet 1200 MG PO ×2 (10:13→17:41)
[2021-06-20] MEDS: lisinopril 20 mg Tablet 40 MG PO (10:13)
[2021-06-20] MEDS: fluticasone nasal spray 16gm Btl 1 SPRAY INTRANASAL (10:14)
--- NOTE | 2021-06-20 11:03 | PC.NURSE ---
Voalte messaged Dr Espinoza regarding Heparin administration time. Per Dr. Espinoza, administration time can be changed to now.
[2021-06-20] MEDS: heparin 5,000 unit/mL INJ 1 mL 5000 UNIT SUBCUT ×2 (12:02→19:55)
[2021-06-20] MEDS: nicotine 21 mg Patch 1 PATCH TRANSDERMA (12:05)
--- NOTE | 2021-06-20 16:31 | PM.PN ---
Subjective Medications: Medication Review Details: Patient was seen this morning, he tells me that he is feeling better, still wheezing, plans on quitting smoking Vitals/I&O/Wt Last Vital Signs Temp 98.3 F 06/20/21 03:58 Pulse 115 H 06/20/21 14:18 Resp 18 06/20/21 14:12 BP 155/85 06/20/21 07:53 Pulse Ox 94 06/20/21 14:12 06/20/21 06/20/21 06/20/21 06:59 14:59 22:59 Intake Total 740 / 1880 Balance 740 / 980 Weight last 48 hrs Weight 104.326 kg Physical Exam Const: COMMON NORMALS: no acute distress and patient oriented x3 Resp: COMMON NORMALS: normal respiratory effort, No retractions and No use of accessory muscles AUSCULTATION: wheezes Cardio: COMMON NORMALS: regular rate, regular rhythm, S1 normal heart sound present and S2 normal heart sound present RATE: regular rate RHYTHM: regular rhythm HEART SOUNDS: S1 normal heart sound present and S2 normal heart sound present GI: COMMON NORMALS: Normal to inspection, nondistended, normoactive bowel sounds present, Soft to palpation, non-tender and No hepatosplenomegaly present PALPATION: Yes Soft to palpation and Yes No hepatosplenomegaly present Extremity: COMMON NORMALS: no pedal edema Neuro: COMMON NORMALS: patient oriented x3 Psych: COMMON NORMALS: mental status grossly normal Data : 06/20/21 04:30 06/20/21 04:30 A&P Assessment and plan (1) COPD exacerbation: Productive cough, dyspnea, hypoxia. Rhino enterovirus positive on 06/16. With nasal congestion. At that time nausea and vomiting. Now also left lower lobe pneumonia. Continue oxygen support. May need oxygen on discharge. Continue to biotics with ceftriaxone and azithromycin. Collect sputum culture. Continue IV steroid. Neb treatments. Flutter valve. I-S. Continue inhaled Giurgius tonight. get up out of bed monitor respiratory status Status: Acute (2) Pneumonia: Ceftriaxone and azithromycin, sputum culture. Possibly secondary to postnasal drip with enterorhinovirus infection. Possibly additionally secondary to aspiration after episode of vomiting. Status: Acute (3) Hypoxia: Oxygen support as tolerating. Status: Acute (4) Lung nodule: Was referred for follow-up with pulmonology at [facility] last time, unclear whether he followed up. Please confirm and refer if needed on discharge. Status: Acute (5) Smoking addiction: Discussed smoking cessation with him for 5 minutes. He reports he is quitting. Continue to encourage cessation. Nicotine replacement as needed. Status: Acute Plan HTN Nasal turbinate hypertrophy WBC up to 21.4 likely secondary to steroids, continue to monitor Attestations Medical Necessity Statement*: Patient requires hospitalization for COPD exacerbation Coding Level of Care Code Acute Policy Writer Sales for [facility] Diagnoses COPD exacerbation J44.1 Pneumonia J18.9 Hypoxia R09.02 Lung nodule R91.1 Smoking addiction F17.200
[2021-06-20] MEDS: azithromycin 500 MG in sodium chloride 0.9% 250 ML 250 MG IV (17:40)
[2021-06-20] MEDS: cefTRIAXone 1,000 MG in sodium chloride 0.9% (plus) 50 ML 100 MG IV (19:55)
[2021-06-21] VITALS (7 sets, daily range): BP systolic 145–170; BP diastolic 81–86; PULSE 81–110; RESP 16–20; TEMP 36.4–36.5; O2SAT 3–95
[2021-06-21] MEDS: ipratropium-albuterol 3 mL Neb INHALATION ×2 (03:02→08:05)
[2021-06-21] MEDS: heparin 5,000 unit/mL INJ 1 mL 5000 UNIT SUBCUT (03:26)
[2021-06-21 03:45] LABS: Basophils % 0.1 %; Hematocrit 40.5 % (42.0-52.0); Hemoglobin 13.2 g/dL (11.7-16.6); Lymphocytes # 1.2 10^3/uL (0.8-4.8); Lymphocytes % 5.6 %; Mean Corpuscular HGB Conc 32.6 g/dL (30.0-36.0); Mean Corpuscular Hemoglobin 32.6 pg (28.0-34.0); Mean Platelet Volume 9.7 fL (7.4-10.4); Monocytes # 0.9 10^3/uL (0.2-0.9); Monocytes % 4.1 %; Neutrophils % 89.1 %; Nucleated Red Blood Cells % 0 %; Platelet Count 273 10^3/cmm (130-400); Red Blood Count 4.05 10^6/uL (4.1-5.3); Red Cell Distribution Width 11.7 % (12.1-15.1); White Blood Count 21.4 10^3/uL (4.0-10.0)
[2021-06-21 04:13] LABS: Anion Gap 14.7 (5-19); Blood Urea Nitrogen 24 mg/dL (8-23); Calcium 9.4 mg/dL (8.5-10.5); Carbon Dioxide 26 mmol/L (22-29); Chloride 101 mmol/L (98-107); Glomerular Filtration Rate 95.6 mL/min (90-130); Glucose 157 mg/dL (65-115); Osmolality Calculated 291 mOsm/kg (285-295); Potassium 4.7 mmol/L (3.5-5.1); Sodium 137 mmol/L (136-145)
[2021-06-21] MEDS: spironolactone 25 mg Tablet PO (09:25)
[2021-06-21] MEDS: guaiFENesin 600 mg Tablet 1200 MG PO (09:25)
[2021-06-21] MEDS: lisinopril 20 mg Tablet 40 MG PO (09:25)
[2021-06-21] MEDS: fluticasone nasal spray 16gm Btl 1 SPRAY INTRANASAL (09:27)
--- NOTE | 2021-06-21 09:35 | ECG_ITS ---
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 Measurements Intervals [place] Rate: 102 P: 59 [place]: 197 QRS: 3 QRSD: 151 T: 31 QT: 330 QTc: 430 Interpretive Statements SINUS TACHYCARDIA INTRAVENTRICULAR CONDUCTION DELAY [130+ ms QRS DURATION] Compared to ECG 06/18/2021 21:48:50 Intraventricular conduction delay now present Myocardial infarct finding no longer present Electronically Signed On 06-21-2021 13:39:57 CDT by Alfonso Sandoval M.D. [id number]
--- NOTE | 2021-07-10 11:42 | PM.DCS ---
Discharge Providers Date of Admission: 06/18/21 22:41 Date of Discharge: July 10, 2021 Attending Provider at Admission: Grady Encinas Attending Provider at Discharge: Austin Espinoza MD Primary Care Provider: FAYE Solares Diagnoses at Discharge Discharge Diagnosis (1) COPD exacerbation: Status: Resolved (2) Pneumonia: Status: Resolved (3) Hypoxia: Status: Acute (4) Lung nodule: Status: Acute (5) Smoking addiction: Status: Acute Reason for Visit Reason for Visit: sob/weakness/congestion Hospital Course Hospital Course This is a 70-year-old male with a past medical history of COPD, smoking, who presents [facility] due to cough, wheezing Patient was admitted to [facility] for COPD exacerbation, managed with oxygen therapy, steroid therapy, antibiotic therapy. Patient completed antibiotic therapy and steroid therapy as inpatient. Patient was monitored as inpatient, clinically improved, discharged on home oxygen. He also was found to have a lung nodule, needs to follow with pulmonary as outpatient. Advised to quit smoking, discharged on nicotine patch Physical Exam Const: COMMON NORMALS: no acute distress and patient oriented x3 Resp: COMMON NORMALS: normal respiratory effort, No retractions, No use of accessory muscles and clear to auscultation bilaterally AUSCULTATION: clear to auscultation bilaterally Cardio: COMMON NORMALS: regular rate, regular rhythm, S1 normal heart sound present and S2 normal heart sound present RATE: regular rate RHYTHM: regular rhythm HEART SOUNDS: S1 normal heart sound present and S2 normal heart sound present GI: COMMON NORMALS: Normal to inspection, nondistended, normoactive bowel sounds present, Soft to palpation and non-tender PALPATION: Yes Soft to palpation Extremity: COMMON NORMALS: no pedal edema Neuro: COMMON NORMALS: patient oriented x3 Psych: COMMON NORMALS: mental status grossly normal Discharge Data Studies Completed and Pending Completed Studies During Hospitalization Category Date Time Status XR chest 1V portable [id number] Urgent Exams 06/18/21 16:24 Completed Radiology Impressions Chest X-Ray 06/18/21 16:24 IMPRESSION: Left lower lobe atelectasis versus minimal infiltrate. Laboratory Results WBC 21.4 10^3/uL (4.0-10.0) H 06/21/21 02:36 RBC 4.05 10^6/uL (4.1-5.3) L 06/21/21 02:36 Hgb 13.2 g/dL (11.7-16.6) 06/21/21 02:36 Hct 40.5 % (42.0-52.0) L 06/21/21 02:36 MCV 100.0 fl (80-94) H 06/21/21 02:36 MCH 32.6 pg (28.0-34.0) 06/21/21 02:36 MCHC 32.6 g/dL (30.0-36.0) 06/21/21 02:36 RDW 11.7 % (12.1-15.1) L 06/21/21 02:36 Plt Count 273 10^3/cmm (130-400) 06/21/21 02:36 MPV 9.7 fL (7.4-10.4) 06/21/21 02:36 Neut % (Auto) 89.1 % 06/21/21 02:36 Lymph % (Auto) 5.6 % 06/21/21 02:36 Cowley % (Auto) 4.1 % 06/21/21 02:36 Eos % (Auto) 0.0 % 06/21/21 02:36 Baso % (Auto) 0.1 % 06/21/21 02:36 Neut # (Auto) 19.10 10^3/uL (1.8-7.7) H 06/21/21 02:36 Lymph # (Auto) 1.2 10^3/uL (0.8-4.8) 06/21/21 02:36 Cowley # (Auto) 0.9 10^3/uL (0.2-0.9) 06/21/21 02:36 Eos # (Auto) 0.0 10^3/uL (0.0-0.8) 06/21/21 02:36 Baso # (Auto) 0.0 10^3/uL (0.0-0.1) 06/21/21 02:36 Nucleated RBC % (auto) 0 % 06/21/21 02:36 Nucleated RBCs # 0.0 /100WBC 06/21/21 02:36 Specimen Type Arterial 06/18/21 07:45 Sample Site Radial, right 06/18/21 07:45 ABG pH 7.39 (7.35-7.45) 06/18/21 07:45 ABG pCO2 41.0 mmHg (35-45) 06/18/21 07:45 ABG pO2 69.0 mmHg (80.0-100.0) L 06/18/21 07:45 ABG HCO3 25.0 mmol/L (22-26) 06/18/21 07:45 ABG Base Excess 0.0 mmol/L (-2.0-2.0) 06/18/21 07:45 Daniel Test Pos 06/18/21 07:45 Hematocrit 43.0 % (42-52) 06/18/21 07:45 O2 Delivery Device Nc 06/18/21 07:45 O2 Liters/Min 3.0 % 06/18/21 07:45 FiO2 32.0 % 06/18/21 07:45 Receiving Tank Operator ID Gd 06/18/21 07:45 Sodium 137 mmol/L (136-145) 06/21/21 02:36 Potassium 4.7 mmol/L (3.5-5.1) 06/21/21 02:36 Chloride 101 mmol/L (98-107) 06/21/21 02:36 Carbon Dioxide 26 mmol/L (22-29) 06/21/21 02:36 Anion Gap 14.7 (5-19) 06/21/21 02:36 BUN 24 mg/dL (8-23) H 06/21/21 02:36 Creatinine 0.8 mg/dL (0.7-1.2) 06/21/21 02:36 GFR Calculation 95.6 mL/min (90-130) 06/21/21 02:36 Glucose 157 mg/dL (65-115) H 06/21/21 02:36 Calculated Osmolality 291 mOsm/kg (285-295) 06/21/21 02:36 Calcium 9.4 mg/dL (8.5-10.5) 06/21/21 02:36 Troponin T Baseline 11 ng/L (0-15) 06/18/21 17:15 Troponin T 120 Minute 9.42 ng/L (0-15) 06/18/21 19:50 Delta Troponin T -1.58 ABS# (0-10) L 06/18/21 19:50 Troponin T Hi Sens 6Hr 10.19 ng/L (0-15) 06/18/21 22:55 Troponin T Hi Sens 6Hr Delta -0.81 ng/L (0-12) L 06/18/21 22:55 NT-Pro-B Natriuret Pep 49 pg/mL (0-125) 06/18/21 17:15 Vitals Last Vital Signs Temp 97.7 F 06/21/21 07:47 Pulse 92 06/21/21 10:50 Resp 18 06/21/21 08:05 BP 170/86 06/21/21 07:47 Pulse Ox 94 06/21/21 08:05 Discharge Plan Discharge Patient Disposition: Home Condition: Stable Prescriptions: New nicotine 21 mg/24 hr Patch 24 Hour 1 patch transdermal DAILY PRN (Reason: Withdrawal) 28 Days Qty: 28 0RF Continued spironolactone 25 mg tablet 25 mg PO DAILY@08 0RF lisinopril 40 mg tablet 40 mg PO DAILY@08 0RF fluticasone propionate [Flonase Allergy Relief] 50 mcg/actuation spray,suspension 1 - 2 spray INTRANASAL DAILY 0RF aspirin [Adult Aspirin Regimen] 81 mg tablet,delayed release (DR/EC) 81 mg PO .EVERY 3 TO 4 DAYS 0RF multivitamin Tablet 1 tab PO DAILY@08 0RF albuterol sulfate 2.5 mg /3 mL (0.083 %) Solution For Nebulization 2.5 mg inhalation Q6H PRN (Reason: Shortness Of Breath) 0RF Sore Throat Aerosol,[place] 2 spray mucous membrane PRN 0RF Tussin CF (PE-DM-guaif) 5-10-100 mg/5 mL Liquid 5 - 10 ml PO Q6H PRN (Reason: Congestion) 0RF albuterol sulfate [ProAir HFA] 90 mcg/actuation Hfa Aerosol Inhaler 2 puff INHALATION Q4H PRN (Reason: Shortness Of Breath) 0RF budesonide-formoterol [Symbicort] 160-4.5 mcg/actuation Hfa Aerosol Inhaler 2 puff INHALATION BID 0RF PreserVision AREDS-2 250-90-40-1 mg Capsule 1 tab PO BID 0RF Discontinued amoxicillin-pot clavulanate [Augmentin] 875-125 mg tablet 1 tab PO BID 10 Days Qty: 20 0RF Discharge Orders: Discharge Order (Routine); Ordered 06/21/21 Ordered By: Austin Espinoza Other Ambulatory Orders: DME: Oxygen (Order) Location: None Selected Ordered By: Austin Espinoza Referrals: Louise Bee FNP [Primary Care Provider] - 06/28/21 10:30 am Johnnie Chiang MD [Physician] - 1 week ( Please call [facility] at to schedule your appointment for 1 week after discharge date. You are being referred to follow up on a lung nodule.) Discharge Diet: Cardiac Discharge Activity: Resume usual activity Patient Instructions: COPD, How to Stop Smoking (DC), Cigarette Smoking and Your Health (GEN), Community Acquired Pneumonia (DC), Pulmonary Nodules (DC), Hypoxia (GEN), Opioid Safety Discharge Attestations Time Spent in Discharge Care*: less than 30 min Quality Metrics Clinical Quality Measures [ No reported AMI, CVA or VTE this stay] Coding Level of Care Code Acute Chg FW DC note Diagnoses COPD exacerbation J44.1 Pneumonia J18.9 Hypoxia R09.02 Lung nodule R91.1 Smoking addiction F17.200
== END 2021-06-21 11:43 | disposition home or self-care (01) ==
LOC: ER 17:30 → MEDSURG 20:21
PROVIDERS: Admitting Provider Internal Medicine; Emergency Provider Emergency Medicine; PCP Nurse Practitioner; Visit Provider Family Medicine
DX: J44.1 Chronic obstructive pulmonary disease with (acute) exacerbation (principal); J18.9 Pneumonia, unspecified organism; R09.02 Hypoxemia; R91.1 Solitary pulmonary nodule; F17.210 Nicotine dependence, cigarettes, uncomplicated; I10 Essential (primary) hypertension; J34.3 Hypertrophy of nasal turbinates
CPT/HCPCS: 36415; 36600; 71045; 80048; 82803; 83880; 84484; 85025; 93005; 94640; 94664; 96365; 96367; 96372; 96375; 96376; 99285; G0378; J0456; J0696; J1644; J2930; J7050; Q0144

== ENCOUNTER 2021-08-19 10:46 | Emergency (ER) | payer OTHER, SELFPAY ==
[2021-08-19] VITALS (7 sets, daily range): BP systolic 118–155; BP diastolic 67–98; PULSE 65–109; RESP 16–20; TEMP 36.9; O2SAT 90–96
--- NOTE | 2021-08-19 11:29 | ED_ITS ---
HPI - General Adult General: Chief complaint: General Medical Stated complaint: Weakness, D/V/N, Fever Time Seen by Provider: 08/19/21 11:26 History of Present Illness: Patient 70-year-old male with history of COPD on 2L oxygen as needed, prior history of smoking presenting to the emergency room with diarrhea generalized weakness, nonproductive cough x3 days. Patient first noticed symptoms 3 days ago at home. No sick contact. Denies any recent antibiotic use. Since this morning, patient has had 1 episode of emesis and loose/watery stool x2 days. Patient is a melena/hematochezia. Patient has no complaints at this time. Denies any chest pain, decreased p.o. intake, fev er, or neurological complaints. Patient reports symptoms very similar to previous ED presentation for rhinovirus 3 months ago Onset:3 days ago Duration:3 days Location:home Severity:moderate Associated symptoms: Reports nausea and vomiting; Deny chest pain, dyspnea, rash or palpitations Review of Systems Const: Reports: chills, change in appetite and fatigue; Denies: fever(s) Eyes: Denies: change in vision ENMT: Denies: mouth pain Card: Denies: chest pain or palpitations Resp: Reports: non-productive cough; Denies: dyspnea GI: Reports: nausea, vomiting and diarrhea; Denies: abdominal pain : Denies: dysuria Musc: Denies: extremity pain Skin/Breast: Denies: rash or new lesions Neuro: Denies: weakness in extremities Psych: Reports: other (Normal mood) Jamison/Lymph: Denies: easy bruising PFSH ED PFSH: Medical History Deviated septum HTN (hypertension) Nasal turbinate hypertrophy Smoking addiction Surgical History H/O elbow surgery History of hernia surgery History of shoulder surgery Family History Mother Lung disease Other Cancer Social History Smoking and tobacco status: current every day smoker cigarettes Packs smoked per day: 1 Years cigarettes smoked: 53 Quit status (tobacco): considering quitting Second hand smoke exposure: Yes Smoking risk assessment/counseling performed?: Yes Alcohol intake: current Alcohol intake frequency: 0-2 Drinks per Day Alcohol type: beer Counseling given: Yes Counseling given: No Lives independently: Yes Household members: none Marital status: service: Yes Current occupational status: retired History of recent travel: No Current gender identity: Male Physical Exam Const: COMMON NORMALS: alert HENMT: COMMON NORMALS: atraumatic HEAD & SCALP: atraumatic MOUTH: moist mucous membranes not abnormal Eye: COMMON NORMALS: EOMs intact bilaterally and conjunctivae normal CONJUNCTIVA: Yes conjunctivae normal Neck/C-Spine: COMMON NORMALS: full ROM and supple Resp: COMMON NORMALS: normal respiratory effort and clear to auscultation bilaterally AUSCULTATION: clear to auscultation bilaterally OTHER: +decreased breath sounds b/l Cardio: COMMON NORMALS: regular rate RATE: regular rate GI: COMMON NORMALS: Soft to palpation and non-tender PALPATION: Yes Soft to palpation Extremity: COMMON NORMALS: full ROM Neuro: SENSORIUM/ORIENTATION: Yes alert MOTOR EXAM: No Abnormal motor strength present and Other motor observations present (no focal motor deficits) Psych: COMMON NORMALS: speech normal SPEECH: Yes normal speech MOOD & AFFECT: Yes euthymic mood Course Vital Signs: Vital signs: Vital Signs Temperature 98.5 F 08/19/21 11:04 Pulse Rate 65 08/19/21 16:00 Respiratory Rate 16 08/19/21 16:00 Blood Pressure 135/77 08/19/21 16:00 Pulse Oximetry 96 08/19/21 16:00 [facility] - General Adult Medical Decision Making 70-year-old male with history of COPD, prior smoking presenting to the emergency room with nonproductive cough, nausea/vomiting, diarrhea, chills and generalized weakness x 2 days. Physical exam, patient is hemodynamically stable. Patient satting at 93 to 94% on 2 L of oxygen at baseline. Mild coarse breath sounds noted bilaterally. EKG/troponin/age-adjusted D-dimer within normal limit. Patient is noted to have white count 17.7 similar to baseline. X-ray did not show any focal findings. Patient received DuoNeb reports symptomatic improvement. COVID/influenza/viral panel within normal. Patient's been to tolerate p.o. Patient received GI cocktail reports symptomatic improvement. Patient is at baseline requiring oxygen on 2 to 3 L. Instructed patient to continue taking oxygen as needed. Rx albuterol PRN dyspnea Disposition: Discharge. Patient counseled regarding diagnostic impression, treatment plan. Patient given ED strict return precautions to return for continuation, worsening, or development of new symptoms. Instructed to f/u w/ PCP regarding symptoms today. Patient verbalized understanding. Lab Data : 08/19/21 11:53 08/19/21 11:53 Radiology Impressions Chest X-Ray 08/19/21 11:33 IMPRESSION: No acute findings. Laboratory Results WBC 17.7 10^3/uL (4.0-10.0) H 08/19/21 11:53 RBC 4.31 10^6/uL (4.1-5.3) 08/19/21 11:53 Hgb 14.2 g/dL (11.7-16.6) 08/19/21 11:53 Hct 42.4 % (42.0-52.0) 08/19/21 11:53 MCV 98.4 fl (80-94) H 08/19/21 11:53 MCH 32.9 pg (28.0-34.0) 08/19/21 11:53 MCHC 33.5 g/dL (30.0-36.0) 08/19/21 11:53 RDW 12.3 % (12.1-15.1) 08/19/21 11:53 Plt Count 269 10^3/cmm (130-400) 08/19/21 11:53 MPV 9.3 fL (7.4-10.4) 08/19/21 11:53 Neut % (Auto) 85.9 % 08/19/21 11:53 Lymph % (Auto) 5.6 % 08/19/21 11:53 Warrick % (Auto) 7.2 % 08/19/21 11:53 Eos % (Auto) 0.4 % 08/19/21 11:53 Baso % (Auto) 0.3 % 08/19/21 11:53 Neut # (Auto) 15.20 10^3/uL (1.8-7.7) H 08/19/21 11:53 Lymph # (Auto) 1.0 10^3/uL (0.8-4.8) 08/19/21 11:53 Warrick # (Auto) 1.3 10^3/uL (0.2-0.9) H 08/19/21 11:53 Eos # (Auto) 0.1 10^3/uL (0.0-0.8) 08/19/21 11:53 Baso # (Auto) 0.1 10^3/uL (0.0-0.1) 08/19/21 11:53 Nucleated RBC % (auto) 0 % 08/19/21 11:53 Nucleated RBCs # 0.0 /100WBC 08/19/21 11:53 D-Dimer 0.69 ug/mIFEU (0-0.59) H 08/19/21 15:45 Sodium 131 mmol/L (136-145) L 08/19/21 11:53 Potassium 4.4 mmol/L (3.5-5.1) 08/19/21 11:53 Chloride 97 mmol/L (98-107) L 08/19/21 11:53 Carbon Dioxide 22 mmol/L (22-29) 08/19/21 11:53 Anion Gap 16.4 (5-19) 08/19/21 11:53 BUN 13 mg/dL (8-23) 08/19/21 11:53 Creatinine 0.9 mg/dL (0.7-1.2) 08/19/21 11:53 GFR Calculation 83.4 mL/min (90-130) L 08/19/21 11:53 Glucose 126 mg/dL (65-115) H 08/19/21 11:53 Calculated Osmolality 274 mOsm/kg (285-295) L 08/19/21 11:53 Calcium 9.1 mg/dL (8.5-10.5) 08/19/21 11:53 Total Bilirubin 0.6 mg/dL (0.15-1.2) 08/19/21 11:53 AST 18 U/L (0-40) 08/19/21 11:53 ALT 22 U/L (0-41) 08/19/21 11:53 Alkaline Phosphatase 95 IU/L (40-130) 08/19/21 11:53 Troponin T Baseline 14 ng/L (0-15) 08/19/21 11:53 Troponin T 120 Minute 10.63 ng/L (0-15) 08/19/21 15:45 Delta Troponin T -3.37 ABS# (0-10) L 08/19/21 15:45 Total Protein 7.7 g/dL (6.6-8.7) 08/19/21 11:53 Albumin 4.6 g/dL (3.5-5.2) 08/19/21 11:53 Globulin 3.1 g/dL (1.3-4.6) 08/19/21 11:53 Lipase 16 U/L (13-60) 08/19/21 11:53 Urine Color Yellow (Yellow) 08/19/21 15:00 Urine Appearance Clear (CLEAR) 08/19/21 15:00 Urine pH 7 (5-7) 08/19/21 15:00 Ur Specific [place] 1.005 (1.005-1.030) 08/19/21 15:00 Urine Protein Neg (Negative) 08/19/21 15:00 Urine Glucose (UA) Norm (Normal) 08/19/21 15:00 Urine Ketones Negative (Negative) 08/19/21 15:00 Urine Blood 2+ (Negative) H 08/19/21 15:00 Urine Nitrate Negative (Negative) 08/19/21 15:00 Urine Bilirubin Neg (Negative) 08/19/21 15:00 Urine Urobilinogen Norm mg/dL (Negative) 08/19/21 15:00 Ur Leukocyte Esterase Negative (Negative) 08/19/21 15:00 Urine RBC 0-4 /hpf (0-2) H 08/19/21 15:00 Urine WBC 15-25 /hpf (0-5) H 08/19/21 15:00 Ur Squamous Epith Cells 0-4 /hpf (0-5) H 08/19/21 15:00 Amorphous Sediment Not Reportable 08/19/21 15:00 Urine Bacteria Trace /hpf (NONE) 08/19/21 15:00 Urine Mucus Trace /hpf 08/19/21 15:00 Nasal Influ A H1 2009 PCR Not detected (NOT DETECT) 08/19/21 11:53 Adenovirus (PCR) Not detected (NOT DETECT) 08/19/21 11:53 C. pneumoniae DNA (PCR) Not detected (NOT DETECT) 08/19/21 11:53 Coronavirus 229E (PCR) Not detected (NOT DETECT) 08/19/21 11:53 Human Metapneumovir PCR Not detected (NOT DETECT) 08/19/21 11:53 Influenza A (H1) PCR Not detected (NOT DETECT) 08/19/21 11:53 Influenza A (H3) PCR Not detected (NOT DETECT) 08/19/21 11:53 Influenza Type A (PCR) Not detected (NOT DETECT) 08/19/21 11:53 Influenza Type B (PCR) Not detected (NOT DETECT) 08/19/21 11:53 M. pneumoniae (PCR) Not detected (NOT DETECT) 08/19/21 11:53 Parainfluenza 1 (PCR) Not detected (NOT DETECT) 08/19/21 11:53 Parainfluenza 2 (PCR) Not detected (NOT DETECT) 08/19/21 11:53 Parainfluenza 3 (PCR) Not detected (NOT DETECT) 08/19/21 11:53 Parainfluenza 4 (PCR) Not detected (NOT DETECT) 08/19/21 11:53 RSV Type A (PCR) Not detected (NOT DETECT) 08/19/21 11:53 RSV Type B (PCR) Not detected (NOT DETECT) 08/19/21 11:53 Entero/Rhino (PCR) Not detected (NOT DETECT) 08/19/21 11:53 SARS-CoV-2 (PCR) Not detected (NOT DETECT) 08/19/21 11:53 Discharge Plan Discharge Patient Disposition: Home Clinical Impression: Cough, Generalized weakness, Nausea & vomiting, Diarrhea Condition: Stable Prescriptions: New albuterol sulfate 90 mcg/actuation HFA aerosol inhaler 2 inh inhalation Q4H PRN (Reason: shortness of breath or wheezing) 5 Days Qty: 6.7 0RF No Action spironolactone 25 mg tablet 25 mg PO DAILY@08 0RF lisinopril 40 mg tablet 40 mg PO DAILY@08 0RF fluticasone propionate [Flonase Allergy Relief] 50 mcg/actuation spray,suspension 1 - 2 spray INTRANASAL DAILY 0RF aspirin [Adult Aspirin Regimen] 81 mg tablet,delayed release (DR/EC) 81 mg PO .EVERY 3 TO 4 DAYS 0RF multivitamin Tablet 1 tab PO DAILY@08 0RF albuterol sulfate 2.5 mg /3 mL (0.083 %) Solution For Nebulization 2.5 mg inhalation Q6H PRN (Reason: Shortness Of Breath) 0RF Sore Throat Aerosol,Boyce 2 spray mucous membrane PRN 0RF Tussin CF (PE-DM-guaif) 5-10-100 mg/5 mL Liquid 5 - 10 ml PO Q6H PRN (Reason: Congestion) 0RF albuterol sulfate [ProAir HFA] 90 mcg/actuation Hfa Aerosol Inhaler 2 puff INHALATION Q4H PRN (Reason: Shortness Of Breath) 0RF budesonide-formoterol [Symbicort] 160-4.5 mcg/actuation Hfa Aerosol Inhaler 2 puff INHALATION BID 0RF PreserVision AREDS-2 250-90-40-1 mg Capsule 1 tab PO BID 0RF Discharge Orders: Discharge ED (Routine); Ordered 08/19/21 Ordered By: Jennifer Villanueva Referrals: Louise Bee FNP [Primary Care Provider] - Discharge Diet: Advance as tolerated Discharge Activity: Increase activity as tolerated Activity Restrictions/Additional Instructions: Come back to the emergency room if your symptoms worsen, have any shortness of breath, fever/chills, dehydration, inability tolerate food or drinks, any difficulty breathing, or any new or concerning complaints. Coding Level of Care Code ED Trust Administrative Assistant for Cristo Fwd Exam Comprehensive
--- NOTE | 2021-08-19 11:33 | XRR_ITS ---
PROCEDURE INFORMATION: Exam: XR Chest Exam date and time: 08/19/2021 11:42 AM Age: 70 years old Clinical indication: Other: Weakness, n/v/f; Additional info: Dyspnea TECHNIQUE: Imaging protocol: XR of the chest. Views: 1 view. COMPARISON: CR XR chest 1V portable [id number] 06/18/2021 4:39 PM FINDINGS: Lungs: Unremarkable. No consolidation. Pleural spaces: Unremarkable. No pleural effusion. No pneumothorax. Heart/Mediastinum: Unremarkable. No cardiomegaly. Bones/joints: Unremarkable. XR/XR chest 1V portable [id number] IMPRESSION: No acute findings.
[2021-08-19] MEDS: acetaminophen 500 mg Tablet PO (11:39)
[2021-08-19] MEDS: ondansetron 2 mg/ML SDV 2 mL 4 MG IVP (11:39)
[2021-08-19] MEDS: lidocaine 2% viscous 15 ML, aluminum-mag hydrox-simethicon 30 ML, sucralfate oral liq 1 GM PO (11:41)
[2021-08-19] MEDS: sodium chloride 0.9% 1,000 ML 999 ML IV (11:55)
[2021-08-19 12:06] LABS: Basophils # 0.1 10^3/uL (0.0-0.1); Basophils % 0.3 %; Eosinophils # 0.1 10^3/uL (0.0-0.8); Eosinophils % 0.4 %; Hematocrit 42.4 % (42.0-52.0); Hemoglobin 14.2 g/dL (11.7-16.6); Lymphocytes % 5.6 %; Mean Corpuscular HGB Conc 33.5 g/dL (30.0-36.0); Mean Corpuscular Hemoglobin 32.9 pg (28.0-34.0); Mean Corpuscular Volume 98.4 fl (80-94); Mean Platelet Volume 9.3 fL (7.4-10.4); Monocytes # 1.3 10^3/uL (0.2-0.9); Monocytes % 7.2 %; Neutrophils % 85.9 %; Nucleated Red Blood Cells % 0 %; Platelet Count 269 10^3/cmm (130-400); Red Blood Count 4.31 10^6/uL (4.1-5.3); Red Cell Distribution Width 12.3 % (12.1-15.1); White Blood Count 17.7 10^3/uL (4.0-10.0)
[2021-08-19] MEDS: ipratropium-albuterol 3 mL Neb INHALATION ×3 (12:08)
[2021-08-19 12:26] LABS: Alanine Aminotransferase 22 U/L (0-41); Albumin Level 4.6 g/dL (3.5-5.2); Alkaline Phosphatase 95 IU/L (40-130); Anion Gap 16.4 (5-19); Aspartate Amino Transferase 18 U/L (0-40); Blood Urea Nitrogen 13 mg/dL (8-23); Calcium 9.1 mg/dL (8.5-10.5); Carbon Dioxide 22 mmol/L (22-29); Chloride 97 mmol/L (98-107); Globulin 3.1 g/dL (1.3-4.6); Glomerular Filtration Rate 83.4 mL/min (90-130); Glucose 126 mg/dL (65-115); Lipase 16 U/L (13-60); Osmolality Calculated 274 mOsm/kg (285-295); Potassium 4.4 mmol/L (3.5-5.1); Sodium 131 mmol/L (136-145); Total Bilirubin 0.6 mg/dL (0.15-1.2); Total Protein 7.7 g/dL (6.6-8.7)
[2021-08-19 13:46] LABS: Adenovirus Not Detected (NOT DETECT); Chlamydia Pneumoniae Not Detected (NOT DETECT); Coronavirus 229E,HKU1,NL63,OC4 Not Detected (NOT DETECT); Human Metapneumovirus Not Detected (NOT DETECT); Human Rhinovirus/Enterovirus Not Detected (NOT DETECT); Influenza A Not Detected (NOT DETECT); Influenza A H1 Not Detected (NOT DETECT); Influenza A H1-2009 Not Detected (NOT DETECT); Influenza A H3 Not Detected (NOT DETECT); Influenza B Not Detected (NOT DETECT); Mycoplasma Pneumoniae Not Detected (NOT DETECT); Parainfluenza Virus Type 1 Not Detected (NOT DETECT); Parainfluenza Virus Type 2 Not Detected (NOT DETECT); Parainfluenza Virus Type 3 Not Detected (NOT DETECT); Parainfluenza Virus Type 4 Not Detected (NOT DETECT); Respiratory Syncytial Virus A Not Detected (NOT DETECT); Respiratory Syncytial Virus B Not Detected (NOT DETECT); SARS-COV-2 Not Detected (NOT DETECT)
--- NOTE | 2021-08-19 15:08 | ECG_ITS ---
[facility] Test Date: 2021-08-19 Pat Name: Neal Masters Department: Room: Gender: Male [employer]: : 1950 Requested By: Jennifer Villanueva Order Number: [id number] Kevin MD: Missael Noble M.D. Measurements Intervals [place] Rate: 101 P: 17 WA: 204 QRS: 0 QRSD: 98 T: 15 QT: 343 QTc: 446 Interpretive Statements SINUS TACHYCARDIA INFERIOR MYOCARDIAL INFARCTION , PROBABLY OLD [40+ ms Q WAVE AND/OR ST/T ABNORMALITY IN II/aVF] Compared to ECG 06/21/2021 09:17:51 Myocardial infarct finding now present Intraventricular conduction delay no longer present Electronically Signed On 08-19-2021 19:40:34 CDT by Missael Noble M.D. [email or web address] [id number]
[2021-08-19 15:23] LABS: Blood Urine 2+ (Negative); Glucose Urine UA Norm (Normal); Ketones Urine Negative (Negative); Protein Urine Neg (Negative); Specific Gravity, Urine 1.005 (1.005-1.030); Urine Appearance Clear (CLEAR); Urine Color Yellow (Yellow); pH Urine 7 (5-7)
[2021-08-19 15:24] LABS: Add Urine Microscopic? YES; Bilirubin Urine Neg (Negative); Leukocyte Esterase Urine Negative (Negative); Nitrate Urine Negative (Negative); Urobilinogen Urine Norm (Negative)
[2021-08-19 15:25] LABS: RBC Urine 0-4 /hpf (0-2)
[2021-08-19 15:26] LABS: Add Urine Culture? Yes; Bacteria Urine TRACE /hpf; Mucus Urine TRACE /hpf; Squamous Epithelial Cell Urine 0-4 /hpf (0-5); WBC Urine 15-25 /hpf (0-5)
[2021-08-19 15:31] LABS: Troponin(5th) Baseline 14 ng/L (0-15)
[2021-08-19 16:17] LABS: D Dimer 0.69 ug/mIFEU (0-0.59)
[2021-08-19 16:19] LABS: Troponin 5 2HR 10.63 ng/L (0-15)
[2021-08-19 16:30] LABS: Troponin 5 2HR Delta -3.37 ABS# (0-10)
--- NOTE | 2021-08-19 17:08 | ECG_ITS ---
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 Measurements Intervals [place] Rate: 98 P: 10 NC: 212 QRS: -1 QRSD: 99 T: 10 QT: 343 QTc: 438 Interpretive Statements SINUS RHYTHM WITH FIRST DEGREE AV BLOCK INFERIOR MYOCARDIAL INFARCTION , PROBABLY OLD [40+ ms Q WAVE AND/OR ST/T ABNORMALITY IN II/aVF] Compared to ECG 08/19/2021 15:20:03 First degree AV block now present Sinus tachycardia no longer present Myocardial infarct finding still present Electronically Signed On 08-19-2021 19:43:23 CDT by Missael Noble M.D. [id number]
== END 2021-08-19 16:54 | disposition home or self-care (01) ==
PROVIDERS: Emergency Provider Emergency Medicine; PCP Nurse Practitioner
DX: R53.1 Weakness (principal); R05.9 Cough, unspecified; R11.2 Nausea with vomiting, unspecified; R19.7 Diarrhea, unspecified; J44.9 Chronic obstructive pulmonary disease, unspecified; I10 Essential (primary) hypertension; Z79.82 Long term (current) use of aspirin
CPT/HCPCS: 36415; 71045; 80053; 81001; 83690; 84484; 85025; 85378; 87086; 87486; 87581; 87633; 93005; 94640; 96374; 96375; 99285; J2405; J2930; J7030

== ENCOUNTER → 2021-11-14 08:52 | Outpatient (BNVA) | payer OTHER, SELFPAY | PROVIDERS: PCP Nurse Practitioner; Visit Provider Internal Medicine Critical Care Medicine | DX: R91.1 Solitary pulmonary nodule (principal); J43.9 Emphysema, unspecified; Z99.81 Dependence on supplemental oxygen | CPT/HCPCS: 99214 ==